=== PATIENT | female | born 1950 | race African-American/Black ===

== ENCOUNTER 2016-10-10 12:49 | Inpatient (IN) | payer MEDICARE, OTHER ==
[2016-10-10] MEDS ORDERED: Sodium Chloride 0.9% 1,000 ML ONE ×2 (13:37→14:21)
[2016-10-10 14:20] LABS: ALT (SGPT) 19 U/L (0-55); AST (SGOT) 22 U/L (5-34); Alkaline Phosphatase 157 U/L (40-150); Anion Gap 16 mmol/L (10-20); BUN (Urea Nitrogen) 41 mg/dL (9.8-20.1); Bilirubin, Total 1.8 mg/dL (0.2-1.2); Calc. Creatinine Clearance 0 mL/min (70-130); Calcium 8.8 mg/dL (7.8-10.44); Carbon Dioxide 14 mmol/L (23-31); Chloride 108 mmol/L (98-107); Estimated GFR-MDRD 21; Globulin 4.2 g/dL (2.4-3.5); Protein, Total 7.5 g/dL (5.8-8.1)
[2016-10-10 14:28] LABS: Band 9 % (5-11); Hematocrit 27.4 % (36.0-47.0); Hypochromia SLIGHT = 6-15 cells (100X) (0-5/hpf); Mean Platelet Volume 9.2 fL (7.4-10.4); Neutrophil 80 % (42-75); Red Blood Cell (RBC) Count 3.19 mill/uL (4.20-5.40); White Blood Cell (WBC) Count 17.5 thou/uL (4.8-10.8)
[2016-10-10 15:00] LABS: Bilirubin Negative (Negative); Blood, Urine Moderate (Negative); Glucose, Urine (Dipstick) Negative (Negative); Ketone, Urine Negative (Negative); Nitrite Negative (Negative); Protein, Urine (Dipstick) 100 mg/dL (Neg-Trace); Urobilinogen 0.2 mg/dL (0.2-1.0)
[2016-10-10 15:01] LABS: Bacteria/HPF 3+ HPF (None Seen); WBC/HPF 21-50 HPF (0-3)
[2016-10-10 15:05] LABS: Lipase Less than 4 U/L (8-78)
[2016-10-10] MEDS ORDERED: cefTRIAXone\\ROCEPHIN 1 GM VIAL ONE (15:16)
[2016-10-10] MEDS ORDERED: Sodium Chloride 0.9% 100 ML ONE (15:16)
--- NOTE | 2016-10-10 15:27 | ERRECORD ---
[facility] EMERGENCY RECORD HPI FLU-LIKE SYNDROME (13:34 JL) CHIEF COMPLAINT: Patient presents for evaluation of body aches, Patient presents for evaluation of fatigue, Patient presents for evaluation of fever, subjective, Patient presents for evaluation of Pt with 4 days of subjective fever and chills and aching all over. Vomitted x1 2 days ago. Left side/flank pain and intermittent CRONIN x3 days. Taking ibuprofen x3 days. Epigastric and RUQ pain since starting the ibuprofen. HISTORIAN: History provided by patient. LOCATION: Symptoms are localized. QUALITY: Pain is dull in nature. TIME COURSE: Patient unable to describe onset of symptoms, There has been no change in the patient's symptoms over time, are intermittent. ASSOCIATED WITH: Associated with abdominal pain, No associated chest pain, No associated cough, No associated diarrhea, Associated with flank pain, on the left, Associated with headache, intermittent, Associated with vomiting, Number of times: 1, currently resolved, No associated neck pain, No associated rash, No associated shortness of breath, No associated urinary tract infection signs or symptoms. EXACERBATED BY: Patient's condition exacerbated by nothing. RELIEVED BY: Patient's condition relieved by nothing. IMMUNIZATION STATUS: Flu vaccine up to date. ROS (13:36 JL) CONSTITUTIONAL: Historian reports chills, reports fever, reports lethargy, reports malaise. EYES: Historian denies eye pain, denies eye redness, denies eye discharge. ENT: Historian denies rhinorrhea, denies sore throat. CARDIOVASCULAR: Historian denies chest pain. RESPIRATORY: Historian denies cough, denies shortness of breath, denies wheezing. GI: Historian reports abdominal pain, denies anorexia, denies appetite changes, denies diarrhea, reports vomiting. GENITOURINARY FEMALE: Historian denies dysuria, denies frequency, denies hematuria. MUSCULOSKELETAL: Historian denies arthralgias, denies myalgias, denies neck pain. left flank pain. SKIN: Historian denies rash, denies skin changes. NEUROLOGIC: Historian denies dizziness, reports headache, denies paralysis, denies paresthesias, denies sensory changes. PAST MEDICAL HISTORY MEDICAL HISTORY: Flu vaccine up to date, Tetanus immunization up to date, Pneumococcal vaccine up to date, Flu vaccine up to date, Tetanus immunization up to date, Pneumococcal vaccine up to &a-1R&a+25V*p+0X*[id number]*c202B*c15G*c2P*p-0X&a-25V&a+1R Name: Donya Sutton : 1950 F66 MedRec: [id number] AcctNum: [id number] Prepared: MonOct 10, 2016 16:29 by Interface Page 1 of 4 pMD [facility] EMERGENCY RECORD date, Flu vaccine up to date, Tetanus immunization up to date, Pneumococcal vaccine up to date, Past medical history includes history of hypertension, Patient is noncompliant, did not take today, Past medical history includes history of diabetes, Type II, on insulin,. (13:25 JPAR) FEMALE SURGICAL HISTORY: ORIF R arm/ elbow, Surgical history of cholecystectomy, open, Notes: over 20 years. (13:25 JPAR) SOCIAL HISTORY: Patient denies alcohol use, Patient denies drug use, Patient has no smoking history,. (13:25 JPAR) FAMILY HISTORY: Family istory is not significant, Maternal history of cardiac disease, PT STATES MOTHER HAD HEART SURGERY, Sibling history of cardiac disease:, coronary artery disease. (13:25 JPAR) NOTES: Nursing records reviewed, Agree with nursing records. (13:38 JLOY) KNOWN ALLERGIES No Known Drug Allergies NONE (Unconfirmed) CURRENT MEDICATIONS Lantus Solostar: INSULIN PEN (ML) : Strength - 100 unit/mL (3 mL) : SUBCUTANEOUS Patient Dose: 6 units Subcutaneous once a day (in the morning). (13:19 JPAR) diclofenac sodium: TABLET, DELAYED RELEASE (ENTERIC COATED) : Strength - 75 mg : ORAL Patient Dose: 1 tab(s) Oral 2 times a day. (13:20 JPAR) pantoprazole: TABLET, DELAYED RELEASE (ENTERIC COATED) : Strength - 40 mg : ORAL Patient Dose: 1 tab(s) Oral once a day. (13:20 JPAR) losartan: TABLET : Strength - 100 mg : ORAL Patient Dose: 1 tab(s) Oral once a day. (13:21 JPAR) hydrochlorothiazide: TABLET : Strength - 25 mg : ORAL Patient Dose: 1 tab(s) Oral once a day. (13:21 JPAR) ferrous sulfate: TABLET : Strength - 325 mg (65 mg iron) : ORAL Patient Dose: 1 tab(s) Oral 2 times a day. (13:22 JPAR) VITAL SIGNS VITAL SIGNS: BP: 134/61, Pulse: 132, Resp: 18, Temp: 99.6 (Oral), Pain: 3, O2 sat: 100, Time: 10/10/2016 13:16. (13:16 JPAR) BP: 113/62, Pulse: 106, Resp: 19, Pain: 1, O2 sat: 97 on Room Air, Time: 10/10/2016 14:15. (14:15 JPAR) BP: 119/57, Pulse: 108, Resp: 17, Pain: 1, O2 sat: 98 on Room Air, Time: 10/10/2016 14:48. (14:48 JPAR) BP: 112/65, Pulse: 104, Resp: 17, Pain: 1, O2 sat: 99 on Room Air, Time: &a-1R&a+25V*p+0X*[id number]*c202B*c15G*c2P*p-0X&a-25V&a+1R Name: Donya Sutton : 1950 F66 MedRec: [id number] AcctNum: [id number] Prepared: MonOct 10, 2016 16:29 by Interface Page 2 of 4 pMD [facility] EMERGENCY RECORD 10/10/2016 15:51. (15:51 JPAR) BP: 108/62, Pulse: 101, Resp: 16, Pain: 1, O2 sat: 99 on Room Air, Time: 10/10/2016 16:02. (16:02 JPAR) PHYSICAL EXAM (13:37 JLOY) CONSTITUTIONAL: Vital signs reviewed, Patient appears non toxic, Patient alert and oriented to person, place and time. EYES: Eye exam included findings of eyelids normal to inspection, Pupils equally round and reactive to light, Conjunctiva normal. ENT: Pharynx exam normal, Uvula exam normal, Tonsil exam normal, Mouth exam included findings of, mucous membranes dry. NECK: Neck exam included findings of normal range of motion, Trachea midline, no meningeal signs, no cervical adenopathy. RESPIRATORY CHEST: Respiratory exam included findings of no respiratory distress, Breath sounds clear, No wheezing, No rales, No rhonchi, Chest exam included findings of chest movement symmetrical. CARDIOVASCULAR: Cardiovascular exam included findings of, rate tachycardic, rhythm regular, Heart sounds normal. ABDOMEN FEMALE: Abdominal exam included findings of abdomen tender, to the epigastric region, to the right upper quadrant, mild intensity, Bowel sounds normal, Liver normal, Spleen normal, no distension, no peritoneal signs, no rigidity, no guarding, no rebound. BACK: Back exam included findings of normal inspection, range of motion normal, Costovertebral angle tenderness, on the left, mild. UPPER EXTREMITY: Upper extremity exam included findings of inspection normal, Radial pulse normal, no cyanosis, no clubbing, no edema. LOWER EXTREMITY: Lower extremity exam included findings of inspection normal, no edema, no calf tenderness. NEURO: [place] coma scale 15, Neuro exam findings include patient oriented to person, place and time, Speech normal. SKIN: Skin exam included findings of skin warm, dry, and normal in color, no rash. PSYCHIATRIC: Normal affect. MEDICATION ADMINISTRATION SUMMARY Drug Name: cefTRIAXone injection, Dose Ordered: 1 g, Route: IV Piggy Back, Status: Given, Time: 15:18 10/10/2016, Drug Name: *sodium chloride 0.9 % intravenous, Dose Ordered: 150 mL/hr, Route: IV Fluid Infusion, Status: Given, Time: 14:22 10/10/2016, Drug Name: *sodium chloride 0.9 % intravenous, Dose Ordered: 1 L, Route: IV Fluid Infusion, Status: Given, Time: 13:49 10/10/2016, *Additional information available in notes, Detailed record available in Medication Service section. 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 (15:15 [facility]) Dr. Suh called and reported that [facility] was full and she accepted the admission to [place]. (15:36 JL) PROBLEM LIST No recorded problems DIAGNOSIS (15:16 DANIELLE) FINAL: PRIMARY: UTI, ADDITIONAL: ACUTE RENAL FAILURE TUBULR NECROSIS. PRESCRIPTION No recorded prescriptions DISPOSITION PATIENT: Disposition Type: Transfer, Disposition: Transfer to [facility]. (15:16 DANIELLE) Disposition Type: Admit, Disposition: [facility]. (15:36 DANIELLE) Patient left the department. (16:24 [place]) Rosado: DANIELLE=MD Ferny, Morgan HAYDEN=LINDY Cavazos, Maxx &a-1R&a+25V*p+0X*[id number]*c202B*c15G*c2P*p-0X&a-25V&a+1R Name: Donya Sutton : 1950 F66 MedRec: [id number] AcctNum: [id number] Prepared: MonOct 10, 2016 16:29 by Interface Page 4 of 4 pMD MTDD
--- NOTE | 2016-10-10 15:30 | PICIS ---
[facility] EMERGENCY RECORD TRIAGE (13:18 JPAR) TRIAGE NOTES: Chills, headache, weakness, body aches and pains. (13:18 JPAR) PATIENT: NAME: Donya Sutton, AGE: 66, GENDER: female, : Mon1950, TIME OF GREET: MonOct 10, 2016 12:49, PREFERRED LANGUAGE: Tongan, ETHNICITY: Not or , ECODE BILLING MAP: [facility], SSN: [id number], Zip Code: [address], KG WEIGHT: 57.61, PHONE: , , , PERSON ID: [id number], PCP: MD Suh Katherine. (13:18 JPAR) COMPLAINT: FEVER,BODY CHILLLS. (13:18 JPAR) ADMISSION: URGENCY: 3 Urgent, ADMISSION SOURCE: Home, TRANSPORT: CAR, BED: TRIAGE. (13:18 JPAR) ASSESSMENT: Assessment: chills, weakness, headache general aches and pains. 3-4 days, Symptoms began 3-4 days, Symptoms began 3 days ago. (13:25 JPAR) SIRS SCORING: Heart Rate 110-139 (2), Temp range 96.8-101.1 (0), respiratory rate 12-24 (0), Mental Status altered: no (0), Infection or Suspected Infection: No. (13:25 JPAR) TRIAGE SCREENING: Patient denies suicidal ideation, Patient denies presence of domestic violence. (13:25 JPAR) PROVIDERS: TRIAGE NURSE: Maxx Cavazos RN. (13:18 JPAR) VITAL SIGNS: BP 134/61, Pulse 132, Resp 18, Temp 99.6, (Oral), Pain 3, O2 Sat 100, Time 10/10/2016 13:16. (13:16 JPAR) PREVIOUS VISIT ALLERGIES: No Known Drug Allergies. (13:18 JPAR) No Known Drug Allergies. (13:25 JPAR) KNOWN ALLERGIES No Known Drug Allergies NONE (Unconfirmed) CURRENT MEDICATIONS Lantus Solostar: INSULIN PEN (ML) : Strength - 100 unit/mL (3 mL) : SUBCUTANEOUS Patient Dose: 6 units Subcutaneous once a day (in the morning). (13:19 JPAR) diclofenac sodium: TABLET, DELAYED RELEASE (ENTERIC COATED) : Strength - 75 mg : ORAL Patient Dose: 1 tab(s) Oral 2 times a day. (13:20 JPAR) pantoprazole: TABLET, DELAYED RELEASE (ENTERIC COATED) : Strength - 40 mg : ORAL Patient Dose: 1 tab(s) Oral once a day. (13:20 JPAR) losartan: TABLET : Strength - 100 mg : ORAL Patient Dose: 1 tab(s) Oral once a day. (13:21 JPAR) hydrochlorothiazide: TABLET : Strength - 25 mg : ORAL Patient Dose: 1 tab(s) Oral once a day. (13:21 JPAR) ferrous sulfate: TABLET : Strength - 325 mg (65 mg iron) : ORAL &a-1R&a+25V*p+0X*w9211D*c202B*c15G*c2P*p-0X&a-25V&a+1R Name: Donya Sutton : 1950 F66 MedRec: [id number] AcctNum: [id number] Prepared: MonOct 10, 2016 16:33 by Interface Page 1 of 14 pMD [facility] EMERGENCY RECORD Patient Dose: 1 tab(s) Oral 2 times a day. (13:22 JPAR) VITAL SIGNS VITAL SIGNS: BP: 134/61, Pulse: 132, Resp: 18, Temp: 99.6 (Oral), Pain: 3, O2 sat: 100, Time: 10/10/2016 13:16. (13:16 JPAR) BP: 113/62, Pulse: 106, Resp: 19, Pain: 1, O2 sat: 97 on Room Air, Time: 10/10/2016 14:15. (14:15 JPAR) BP: 119/57, Pulse: 108, Resp: 17, Pain: 1, O2 sat: 98 on Room Air, Time: 10/10/2016 14:48. (14:48 JPAR) BP: 112/65, Pulse: 104, Resp: 17, Pain: 1, O2 sat: 99 on Room Air, Time: 10/10/2016 15:51. (15:51 JPAR) BP: 108/62, Pulse: 101, Resp: 16, Pain: 1, O2 sat: 99 on Room Air, Time: 10/10/2016 16:02. (16:02 JPAR) NURSING ASSESSMENT: HEADACHE (13:18 JPAR) CONSTITUTIONAL: Patient arrives ambulatory, Gait steady, History obtained from patient, Patient appears comfortable, Patient cooperative, Patient alert, Oriented to person, place and time, Skin warm, Skin dry, Skin normal in color, Mucous membranes pink, Mucous membranes moist, Patient complains of headache, dehydration, chills general body aches and pains, pt states 4-5 days onset, got flu shot 2 weeks ago. PAIN: aching pain, to the frontal region, to the right orbit, to the right parietal region, to the posterior region, Onset of pain 4-5 days, on a scale 0-10 patient rates pain as 3. HEADACHE: Headache assessment findings include headache not worst of life, no history of migraines, no associated aura, no associated difficulty concentrating, not associated with diplopia, Associated with nausea, Associated with vomiting, no associated photophobia, no associated phonophobia, no associated, Precipitating factors do not include alcohol use, Precipitating factors do not include alcohol withdrawal, Precipitating factors do not include altered sleep pattern, Precipitating factors do not include depression, Precipitating factors include fatigue, Precipitating factors include fever, Precipitating factors do not include flickering lights, Precipitating factors do not include food, Precipitating factors do not include menses, Precipitating factors do not include stress, Precipitating factors do not include watching television, Precipitating factors do not include. NEURO: Neuro assessment findings include onset of symptoms: 4-5 days, Pupils equally round and reactive to light, Left pupil 3 mm in size, Right pupil 3 mm in size, Able to close eyes, Face symmetrical, Speech normal, no ptosis, no nystagmus, no visual changes, no facial droop, no facial numbness, no swelling, no paresthesias, GCS:, Eye opening: (4) - Spontaneous, Verbal: (5) - Oriented/conversive, Motor: (6) - Obeys commands/Spontaneous, GCS Total: 15, Upper extremity strength strong, no numbness to upper extremities, Lower extremity strength strong, Foot press equal, &a-1R&a+25V*p+0X*i5203J*c202B*c15G*c2P*p-0X&a-25V&a+1R Name: Donya Sutton : 1950 F66 MedRec: [id number] AcctNum: [id number] Prepared: MonOct 10, 2016 16:33 by Interface Page 2 of 14 pMD [facility] EMERGENCY RECORD no numbness to lower extremities. SAFETY: Side rails up, Cart/Stretcher in lowest position, Family at bedside, Call light within reach, Hospital ID band on. NURSING PROCEDURE: ADMISSION (15:45 JPAR) ADMISSION: Patient admitted to a medical-surgical unit, room number 142, Report called to, Ladonna, Provided opportunity to answer questions, Admission orders received and completed, Bed assigned at 1545, Report called at 1545, Patient Admited at. 1545, Transported via cart/stretcher, Accompanied by registered nurse, Transported with IV Fluid(s) infusing, NS @ 150ml/hr, Summary of Care printed. BELONGINGS: Belongings and valuables with patient at time of admission include:, Belongings remain with patient, Valuables remain with patient. SAFETY: Side rails up, Cart/Stretcher in lowest position, Call light within reach, Hospital ID band on. NURSING PROCEDURE: STRUCTURAL ENGINEER (14:00 JPAR) PATIENT IDENTIFIER: Patient actively involved in identification process, Patient's identity verified by patient stating name, Patient's identity verified by patient stating date, Patient's identity verified by hospital ID bracelet, Patient's identity verified by family member. STRUCTURAL ENGINEER: Cardiac monitoring indicated for Dehydration/ Tachycardia, Patient placed on environmental monitoring technician, Heart rate: 111, showing sinus tachycardia, without ectopy, with no ST segment changes, Patient placed on non-invasive blood pressure monitor, with disposable blood pressure cuff applied, Patient placed on continuous pulse oximetry, Adult/pediatric oxisensor applied, Oxygen saturation 98%. FOLLOW-UP: After procedure, patient tolerating monitoring. SAFETY: Side rails up, Cart/Stretcher in lowest position, Call light within reach, Hospital ID band on. NURSING PROCEDURE: ENT (13:50 JPAR) PATIENT IDENTIFIER: Patient actively involved in identification process, Patient's identity verified by patient stating name, Patient's identity verified by patient stating date, Patient's identity verified by hospital ID bracelet, Patient's identity verified by family member. ENT: ENT care indicated for specimen collection, Nasal swab collected, labeled in the presence of the patient and sent to lab for testing of, influenza A, influenza B. SAFETY: Side rails up, Cart/Stretcher in lowest position, Family at bedside, Call light within reach, Hospital ID band on. NURSING PROCEDURE: IV PATIENT IDENITIFIER: Patient actively involved in identification process, Patient's identity verified by patient stating name, &a-1R&a+25V*p+0X*e9167E*c202B*c15G*c2P*p-0X&a-25V&a+1R Name: Donya Sutton : 1950 F66 MedRec: [id number] AcctNum: [id number] Prepared: MonOct 10, 2016 16:33 by Interface Page 3 of 14 [facility] EMERGENCY RECORD Patient's identity verified by patient stating date, Patient's identity verified by hospital ID bracelet, Patient's identity verified by family member. (13:44 JPAR) IV SITE 1: IV therapy indicated for hydration, IV therapy indicated for medication administration, IV therapy indicated for Dehydration/ Tachycardia, IV established, to the right forearm, using a 20 gauge catheter, in one attempt, IV site prepped with clorohexaphine, Saline lock established, Flushed with normal saline (mls): 10, Labs drawn at time of placement, labeled in the presence of the patient and sent to lab, Blood cultures drawn at time of placement, labeled in the presence of the patient and sent to lab, Notes: 1st set cultures complete. (13:44 JPAR) FOLLOW-UP SITE 1: After procedure, 2x3 ensure dressing applied, After procedure, no drainage at IV site, After procedure, no swelling at IV site, After procedure, no redness at IV site, Notes: IV Patent with fluids running 150ml/hr. (16:01 JPAR) SAFETY: Side rails up, Cart/Stretcher in lowest position, Family at bedside, Call light within reach, Hospital ID band on. (13:44 JPAR) NURSING PROCEDURE: LAB DRAW (14:06 JPAR) PATIENT IDENTIFIER: Patient actively involved in identification process, Patient's identity verified by patient stating name, Patient's identity verified by patient stating date, Patient's identity verified by hospital ID bracelet. LAB DRAW: Lab draw indicated for inability to obtain labs from IV site, Lab draw indicated for obtaining specimens for evaluation, Subsequent lab draw performed, by venipuncture, from left forearm, in two attempts, Blood cultures labeled in the presence of the patient and sent to lab, Notes: 2nd set of BC taken. FOLLOW-UP: After procedure, dressing applied to site, After procedure, no swelling at site, After procedure, no active bleeding from site. SAFETY: Side rails up, Cart/Stretcher in lowest position, Call light within reach, Hospital ID band on. NURSING PROCEDURE: NURSE NOTES (15:45 JPAR) NURSES NOTES: Patient in no apparent distress, Notes: Pt family contacted and was told no beds available at this time in [place] so pt going to be admitted here in [place] to care of Dr. Suh. NURSING PROCEDURE: URINE COLLECTION (14:38 JPAR) PATIENT IDENTIFIER: Patient actively involved in identification process, Patient's identity verified by patient stating name, Patient's identity verified by patient stating date, Patient's identity verified by hospital ID bracelet, Patient's identity verified by family member. URINE COLLECTION FEMALE: Urine collection indicated to monitor output, Urine collected by void, output amount (mL) 30, urine clear &a-1R&a+25V*p+0X*c5351H*c202B*c15G*c2P*p-0X&a-25V&a+1R Name: Donya Sutton : 1950 F66 MedRec: [id number] AcctNum: [id number] Prepared: MonOct 10, 2016 16:33 by Interface Page 4 of 14 pMD [facility] EMERGENCY RECORD in color, and cloudy, Specimen labeled in the presence of the patient and sent to lab, Specimen obtained for culture labeled in the presence of the patient and sent to lab. SAFETY: Side rails up, Cart/Stretcher in lowest position, Family at bedside, Call light within reach, Hospital ID band on. ORDER DETAILS Order Name: STRUCTURAL ENGINEER ED, Status: Done, Time: 13:59 10/10/2016, User: CATRACHO, - Ordered for: MD Isaacs Joshua, - Entered by: MD Isaacs Joshua - Jose Oct 10, 2016 13:33, - Quantity: 1, Order Name: CBC with Differential, Status: Active, Time: 13:33 10/10/2016, User: DANIELLE, - Ordered for: MD Isaacs Joshua, - Entered by: MD Isaacs Joshua - Jose Oct 10, 2016 13:33, - Quantity: 1, Order Name: Comprehensive Metabolic Panel, Status: Active, Time: 13:33 10/10/2016, User: DANIELLE, - Ordered for: MD Isaacs Joshua, - Entered by: MD Isaacs Joshua - Jose Oct 10, 2016 13:33, - Quantity: 1, Order Name: Culture, Blood, Status: Active, Time: 13:33 10/10/2016, User: DANIELLE, - Ordered for: MD Isaacs Joshua, - Entered by: MD Isaacs Joshua - Jose Oct 10, 2016 13:33, - Quantity: 1, Order Name: Culture, Urine, Status: Active, Time: 15:07 10/10/2016, User: DANIELLE, - Ordered for: MD Isaacs Joshua, - Entered by: MD Isaacs Joshua - [facility] Oct 10, 2016 15:07, - Quantity: 1, Order Name: Influenza A&B Ag Screen, Status: Active, Time: 13:33 10/10/2016, User: DANIELLE, - Ordered for: MD Isaacs Joshua, - Entered by: MD Isaacs Joshua - [facility] Oct 10, 2016 13:33, - Quantity: 1, Order Name: Lipase, Status: Active, Time: 13:33 10/10/2016, User: DANIELLE, - Ordered for: MD Isaacs Joshua, - Entered by: MD Isaacs Joshua - Jose Oct 10, 2016 13:33, - Quantity: 1, Order Name: SALINE LOCK, Status: Done, Time: 14:00 10/10/2016, User: CATRACHO, - Ordered for: MD Isaacs Joshua, - Entered by: MD Isaacs Joshua - Jose Oct 10, 2016 13:33, - Quantity: 1, Order Name: Urinalysis with Microscopic, Status: Active, Time: 13:33 10/10/2016, User: DANIELLE, - Ordered for: MD Isaacs Joshua, &a-1R&a+25V*p+0X*k8015N*c202B*c15G*c2P*p-0X&a-25V&a+1R Name: Donya Sutton : 1950 F66 MedRec: [id number] AcctNum: [id number] Prepared: MonOct 10, 2016 16:33 by Interface Page 5 of 14 pMD [facility] EMERGENCY RECORD - Entered by: MD Isaacs Joshua - MonOct 10, 2016 13:33, - Quantity: 1, Order Name: XR Chest 1 View Portable, Status: Active, Time: 13:33 10/10/2016, User: DANIELLE, - Ordered for: MD Isaacs Joshua, - Entered by: MD Isaacs Joshua - MonOct 10, 2016 13:33, - Quantity: 1. MEDICATION ADMINISTRATION SUMMARY Drug Name: cefTRIAXone injection, Dose Ordered: 1 g, Route: IV Piggy Back, Status: Given, Time: 15:18 10/10/2016, Drug Name: *sodium chloride 0.9 % intravenous, Dose Ordered: 150 mL/hr, Route: IV Fluid Infusion, Status: Given, Time: 14:22 10/10/2016, Drug Name: *sodium chloride 0.9 % intravenous, Dose Ordered: 1 L, Route: IV Fluid Infusion, Status: Given, Time: 13:49 10/10/2016, *Additional information available in notes, Detailed record available in Medication Service section. MEDICATION SERVICE cefTRIAXone injection: Order: cefTRIAXone injection (ceftriaxone sodium) - Dose: 1 g : IV Piggy Back Ordered by: Morgan Isaacs MD Entered by: Morgan Isaacs MD MonOct 10, 2016 15:08 , Acknowledged by: Maxx Cavazos RN MonOct 10, 2016 15:15 Documented as given by: Maxx Cavazos RN MonOct 10, 2016 15:18 Patient, Medication, Dose, Route and Time verified prior to administration. IV SITE #1 IVPB or drip, initial infusion, IVPB mixed in: 100ml, Fluid: 0.9NS, via primary tubing, on an IV pump, Awake and alert- acceptable, Connections checked prior to administration, Line traced prior to administration, Catheter placement confirmed via flush prior to administration, IV site without signs or symptoms of infiltration during medication administration, No swelling during administration, No drainage during administration, IV flushed after administration, Correct patient, time, route, dose and medication confirmed prior to administration, Patient advised of actions and side-effects prior to administration, Allergies confirmed and medications reviewed prior to administration, Patient in position of comfort, Side rails up, Cart in lowest position, Call light in reach. : Follow Up : Response assessment performed, No signs or symptoms of allergic reaction noted, Site inspection shows, No swelling at administration site, No drainage at administration site, No bleeding at site, No bruising noted at site, _IV SITE #1:_, Medication infusion discontinued, on MonOct 10, 2016 15:48, 30 minutes, ., IV Line flushed after administration, Advised not to ambulate without assistance, Patient in position of comfort, Side rails up, Cart in lowest position, Family at bedside, Call light in reach. (15:48 JPAR) sodium chloride 0.9 % intravenous: Order: sodium chloride 0.9 % &a-1R&a+25V*p+0X*i8230E*c202B*c15G*c2P*p-0X&a-25V&a+1R Name: Donya Sutton : 1950 F66 MedRec: [id number] AcctNum: [id number] Prepared: MonOct 10, 2016 16:33 by Interface Page 6 of 14 pMD [facility] EMERGENCY RECORD intravenous (0.9 % sodium chloride) - Dose: 1 L : IV Fluid Infusion Notes: (Bolus) Ordered by: Morgan Isaacs MD Entered by: Morgan Isaacs MD MonOct 10, 2016 13:33 , Acknowledged by: Maxx Cavazos RN MonOct 10, 2016 13:36 Documented as given by: Maxx Cavazos RN MonOct 10, 2016 13:49 Patient, Medication, Dose, Route and Time verified prior to administration. IV SITE #1 IV fluids established for hydration, IV SITE #1 into right forearm, IV SITE #1 1st bag hung, amount 1 Liter hung, IV SITE #1 bolus of 1000 ml established, via primary tubing, Awake and alert- acceptable, Connections checked prior to administration, Line traced prior to administration, Catheter placement confirmed via flush prior to administration, IV site without signs or symptoms of infiltration during medication administration, No swelling during administration, No drainage during administration, IV flushed after administration, Correct patient, time, route, dose and medication confirmed prior to administration, Patient advised of actions and side-effects prior to administration, Allergies confirmed and medications reviewed prior to administration, Patient in position of comfort, Side rails up, Cart in lowest position, Family at bedside, Call light in reach. sodium chloride 0.9 % intravenous: Response assessment performed, Decreased symptoms, Decreased heart rate, Site inspection shows, No swelling at administration site, No drainage at administration site, No bleeding at site, No bruising noted at site, _IV SITE #1:_, IV fluid infusion discontinued, on MonOct 10, 2016 14:15, 30 minutes, ., Total amount infused: 1000, IV Line flushed after administration, Advised not to ambulate without assistance, Patient in position of comfort, Side rails up, Cart in lowest position, Call light in reach, BP: 113, / 62, Pulse: 106, Resp: 19, Pain: 1, O2 sat: 97, on Room Air. (14:15 JPAR) sodium chloride 0.9 % intravenous: Order: sodium chloride 0.9 % intravenous (0.9 % sodium chloride) - Dose: 150 mL/hr : IV Fluid Infusion Notes: (Bolus) Ordered by: Morgan Isaacs MD Entered by: Morgan Isaacs MD MonOct 10, 2016 14:21 Documented as given by: Maxx Cavazos RN MonOct 10, 2016 14:22 Patient, Medication, Dose, Route and Time verified prior to administration. IV SITE #1 IV fluids established for hydration, IV SITE #1 into right forearm, IV SITE #1 2nd bag hung, amount 1 Liter hung, IV SITE #1 Rate of infusion (non-bolus) Infusing at 150 ml/hr, via primary tubing, IV SITE #1 on IV pump, Awake and alert- acceptable, Connections checked prior to administration, Line traced prior to administration, Catheter placement confirmed via flush prior to administration, IV site without signs or symptoms of infiltration during medication administration, No swelling during administration, No drainage during administration, IV flushed after administration, &a-1R&a+25V*p+0X*n9067P*c202B*c15G*c2P*p-0X&a-25V&a+1R Name: Donya Sutton : 1950 F66 MedRec: [id number] AcctNum: [id number] Prepared: MonOct 10, 2016 16:33 by Interface Page 7 of 14 pMD [facility] EMERGENCY RECORD Correct patient, time, route, dose and medication confirmed prior to administration, Patient advised of actions and side-effects prior to administration, Allergies confirmed and medications reviewed prior to administration, Patient in position of comfort, Side rails up, Cart in lowest position, Family at bedside, Call light in reach. sodium chloride 0.9 % intravenous: Response assessment performed, No signs or symptoms of allergic reaction noted, Decreased heart rate, Site inspection shows, No swelling at administration site, No drainage at administration site, No bleeding at site, No bruising noted at site, _IV SITE #1:_, IV fluid infusion continued upon transfer from emergency department, on MonOct 10, 2016 16:02, Total fluid hydration time IV site 1 1 hour, 40 minutes, ., Total amount infused: 260ml, IV Line flushed after administration, Advised not to ambulate without assistance, Patient in position of comfort, Side rails up, Cart in lowest position, Call light in reach, BP: 108, / 62, Pulse: 101, Resp: 16, Pain: 1, O2 sat: 99, on Room Air. (16:02 VIDA) HPI FLU-LIKE SYNDROME (13:34 [facility]) CHIEF COMPLAINT: Patient presents for evaluation of body aches, Patient presents for evaluation of fatigue, Patient presents for evaluation of fever, subjective, Patient presents for evaluation of Pt with 4 days of subjective fever and chills and aching all over. Vomitted x1 2 days ago. Left side/flank pain and intermittent CRONIN x3 days. Taking ibuprofen x3 days. Epigastric and RUQ pain since starting the ibuprofen. HISTORIAN: History provided by patient. LOCATION: Symptoms are localized. QUALITY: Pain is dull in nature. TIME COURSE: Patient unable to describe onset of symptoms, There has been no change in the patient's symptoms over time, are intermittent. ASSOCIATED WITH: Associated with abdominal pain, No associated chest pain, No associated cough, No associated diarrhea, Associated with flank pain, on the left, Associated with headache, intermittent, Associated with vomiting, Number of times: 1, currently resolved, No associated neck pain, No associated rash, No associated shortness of breath, No associated urinary tract infection signs or symptoms. EXACERBATED BY: Patient's condition exacerbated by nothing. RELIEVED BY: Patient's condition relieved by nothing. IMMUNIZATION STATUS: Flu vaccine up to date. ROS (13:36 [facility]) CONSTITUTIONAL: Historian reports chills, reports fever, reports lethargy, reports malaise. EYES: Historian denies eye pain, denies eye redness, denies eye discharge. ENT: Historian denies rhinorrhea, denies sore throat. &a-1R&a+25V*p+0X*j8693A*c202B*c15G*c2P*p-0X&a-25V&a+1R Name: Donya Sutton : 1950 F66 MedRec: [id number] AcctNum: [id number] Prepared: MonOct 10, 2016 16:33 by Interface Page 8 of 14 pMD [facility] EMERGENCY RECORD CARDIOVASCULAR: Historian denies chest pain. RESPIRATORY: Historian denies cough, denies shortness of breath, denies wheezing. GI: Historian reports abdominal pain, denies anorexia, denies appetite changes, denies diarrhea, reports vomiting. GENITOURINARY FEMALE: Historian denies dysuria, denies frequency, denies hematuria. MUSCULOSKELETAL: Historian denies arthralgias, denies myalgias, denies neck pain. left flank pain. SKIN: Historian denies rash, denies skin changes. NEUROLOGIC: Historian denies dizziness, reports headache, denies paralysis, denies paresthesias, denies sensory changes. PAST MEDICAL HISTORY MEDICAL HISTORY: Flu vaccine up to date, Tetanus immunization up to date, Pneumococcal vaccine up to date, Flu vaccine up to date, Tetanus immunization up to date, Pneumococcal vaccine up to date, Flu vaccine up to date, Tetanus immunization up to date, Pneumococcal vaccine up to date, Past medical history includes history of hypertension, Patient is noncompliant, did not take today, Past medical history includes history of diabetes, Type II, on insulin,. (13:25 JPAR) FEMALE SURGICAL HISTORY: ORIF R arm/ elbow, Surgical history of cholecystectomy, open, Notes: over 20 years. (13:25 JPAR) SOCIAL HISTORY: Patient denies alcohol use, Patient denies drug use, Patient has no smoking history,. (13:25 JPAR) FAMILY HISTORY: Family istory is not significant, Maternal history of cardiac disease, PT STATES MOTHER HAD HEART SURGERY, Sibling history of cardiac disease:, coronary artery disease. (13:25 JPAR) NOTES: Nursing records reviewed, Agree with nursing records. (13:38 JLOY) PHYSICAL EXAM (13:37 JLOY) CONSTITUTIONAL: Vital signs reviewed, Patient appears non toxic, Patient alert and oriented to person, place and time. EYES: Eye exam included findings of eyelids normal to inspection, Pupils equally round and reactive to light, Conjunctiva normal. ENT: Pharynx exam normal, Uvula exam normal, Tonsil exam normal, Mouth exam included findings of, mucous membranes dry. NECK: Neck exam included findings of normal range of motion, Trachea midline, no meningeal signs, no cervical adenopathy. RESPIRATORY CHEST: Respiratory exam included findings of no respiratory distress, Breath sounds clear, No wheezing, No rales, No rhonchi, Chest exam included findings of chest movement symmetrical. CARDIOVASCULAR: Cardiovascular exam included findings of, rate tachycardic, rhythm regular, Heart sounds normal. &a-1R&a+25V*p+0X*[id number]*c202B*c15G*c2P*p-0X&a-25V&a+1R Name: Donya Sutton : 1950 F66 MedRec: [id number] AcctNum: [id number] Prepared: MonOct 10, 2016 16:33 by Interface Page 9 of 14 pMD [facility] EMERGENCY RECORD ABDOMEN FEMALE: Abdominal exam included findings of abdomen tender, to the epigastric region, to the right upper quadrant, mild intensity, Bowel sounds normal, Liver normal, Spleen normal, no distension, no peritoneal signs, no rigidity, no guarding, no rebound. BACK: Back exam included findings of normal inspection, range of motion normal, Costovertebral angle tenderness, on the left, mild. UPPER EXTREMITY: Upper extremity exam included findings of inspection normal, Radial pulse normal, no cyanosis, no clubbing, no edema. LOWER EXTREMITY: Lower extremity exam included findings of inspection normal, no edema, no calf tenderness. NEURO: [place] coma scale 15, Neuro exam findings include patient oriented to person, place and time, Speech normal. SKIN: Skin exam included findings of skin warm, dry, and normal in color, no rash. PSYCHIATRIC: Normal affect. EVENTS TRANSFER: Triage to Emergency Triage. (MonOct 10, 2016 13:18 JPAR) Emergency Triage to Emergency Room -04. (13:20 LHAL) Removed from Emergency Emergency Room -04. (16:24 JPAR) DOCTOR NOTES TEXT: Dr. Suh accepted the transfer to [facility] as a direct admit. (15:15 JLOY) Dr. Suh called and reported that [facility] was full and she accepted the admission to [place]. (15:36 JLOY) PROBLEM LIST No recorded problems DIAGNOSIS (15:16 JLOY) FINAL: PRIMARY: UTI, ADDITIONAL: ACUTE RENAL FAILURE TUBULR NECROSIS. DISPOSITION PATIENT: Disposition Type: Transfer, Disposition: Transfer to [facility]. (15:16 JLOY) Disposition Type: Admit, Disposition: [facility]. (15:36 JLOY) Patient left the department. (16:24 JPAR) PRESCRIPTION No recorded prescriptions IMAGING ADMISSION ORDERS: Image captured from scanner. (15:29 JPAR) &a-1R&a+25V*p+0X*[id number]*c202B*c15G*c2P*p-0X&a-25V&a+1R Name: Donya Sutton : 1950 F66 MedRec: [id number] AcctNum: [id number] Prepared: MonOct 10, 2016 16:33 by Interface Page 10 of 14 pMD [facility] EMERGENCY RECORD *SUPPLY CHARGE SHEET: Image captured from scanner. (15:52 JPAR) ADMIN DIGITAL SIGNATURE: MD Isaacs Joshua. (15:18 JLOY) MD Isaacs Joshua. (15:21 JLOY) MD Isaacs Joshua. (15:36 JLOY) RESULTS LABORATORY: CBC with Differential Collection DT: MonOct 10, 2016 14:01, *White Blood Cell (WBC) Count 17.5 - H thou/uL, Range (4.8-10.8), *Red Blood Cell (RBC) Count 3.19 - L mill/uL, Range (4.20-5.40), *Hemoglobin 9.0 - L g/dL, Range (12.0-16.0), *Hematocrit 27.4 - L %, Range (36.0-47.0), Mean Corpuscular Volume 85.8 fl, Range (81.0-99.0), Mean Corpuscular Hemoglobin 28.3 pg, Range (27.0-31.0), Mean Corpuscular HGB CONC 33.0 g/dL, Range (32.0-36.0), *RBC Distribution Width 11.4 - L %, Range (11.5-14.5), Platelet Count 130 thou/uL, Range (130-400), Mean Platelet Volume 9.2 fL, Range (7.4-10.4), *Neutrophil 80 - H %, Range (42-75), Band 9 %, Range (5-11), *Lymphocytes 3 - L %, Range (21-51), Monocytes 5 %, Range (0-10), Eosinophils 2 %, Range (0-10), Basophils 1 %, Range (0-2), Hypochromia SLIGHT = 6-15 cells (100X), Range (0-5/hpf), Large Platelets SLIGHT , PLT Morphology Comment Appears Adequate . (14:33 JPAR) MICROBIOLOGY: Influenza A&B Ag Screen: [id number] Collection DT: MonOct 10, 2016 14:01, See comment below , @ ER ROOM#: [id number] Source: Nasal swab Spec Desc: , Influenza A Antigen: NEGATIVE for the , presence of , INFLUENZA A Antigen , Influenza B Antigen: NEGATIVE for the , presence of , INFLUENZA B Antigen , The rapid Flu A&B test can distinguish between influenza A , Influenza A&B Ag Screen See comment below , and B viruses, but it does not differentiate influenza , Influenza A&B Ag Screen See comment below , subtypes. , Influenza A&B Ag Screen See comment below , Influenza A&B Ag Screen See comment below , Influenza A&B Ag Screen See comment below , Influenza A&B Ag Screen See comment below , characteristics of this &a-1R&a+25V*p+0X*[id number]*c202B*c15G*c2P*p-0X&a-25V&a+1R Name: Donya Sutton : 1950 F66 MedRec: [id number] AcctNum: [id number] Prepared: MonOct 10, 2016 16:33 by Interface Page 11 of 14 pMD [facility] EMERGENCY RECORD device with human specimens infected , Influenza A&B Ag Screen See comment below , with the 2008 H1N1 influenza virus have not been , Influenza A&B Ag Screen See comment below , established. For example: this test cannot distinguish , Influenza A&B Ag Screen See comment below , influenza infections caused by novel H1N1 influenza A , Influenza A&B Ag Screen See comment below , viruses versus seasonal influenza A viruses. , Influenza A&B Ag Screen See comment below , , Influenza A&B Ag Screen See comment below , A negative result does not exclude influenza virus , Influenza A&B Ag Screen See comment below , infection; therefore, if more conclusive testing is desired, , Influenza A&B Ag Screen See comment below , follow up confirmatory testing is warranted., Influenza A&B Ag Screen See comment below . (14:33 JPAR) LABORATORY: Comprehensive Metabolic Panel Collection DT: MonOct 10, 2016 14:01, *Sodium 135 - L mmol/L, Range (136-145), *Potassium 3.2 - L mmol/L, Range (3.5-5.1), *Chloride 108 - H mmol/L, Range (98-107), *Carbon Dioxide 14 - L mmol/L, Range (23-31), Anion Gap 16 mmol/L, Range (10-20), *BUN (Urea Nitrogen) 41 - H mg/dL, Range (9.8-20.1), *Creatinine 2.72 - H mg/dL, Range (0.6-1.1), Estimated GFR-MDRD 21 , Reference Range for Estimated GFR: Greater than 90, mL/min/1.73 m2 NOTE: The MDRD equation has not been validated for use, with the elderly (over 70 years of age), women, patients with, serious comorbid condition or persons with extremes of body size, muscle, mass, or nutritional status. , *Glucose 195 - H mg/dL, Range (80-115), Calcium 8.8 mg/dL, Range (7.8-10.44), *Bilirubin, Total 1.8 - H mg/dL, Range (0.2-1.2), Protein, Total 7.5 g/dL, Range (5.8-8.1), NOTE: Plasma values are generally 0.3 to 0.5 g/dL higher than serum values, due to the presence of fibrinogen. , *Albumin 3.3 - L g/dL, Range (3.4-4.8), *Globulin 4.2 - H g/dL, Range (2.4-3.5), *Alb/Glob Ratio 0.8 - L g/dL, Range (1.2-2.2), *Alkaline Phosphatase 157 - H U/L, Range (40-150), AST (SGOT) 22 U/L, Range (5-34), ALT (SGPT) 19 U/L, Range (0-55). (14:33 VIDA) Lipase Collection DT: MonOct 10, 2016 14:01, *Lipase Less than 4 - L U/L, Range (8-78). (15:21 [facility]) Comprehensive Metabolic Panel Collection DT: MonOct 10, 2016 14:01, &a-1R&a+25V*p+0X*[id number]*c202B*c15G*c2P*p-0X&a-25V&a+1R Name: Donya Sutton : 1950 F66 MedRec: [id number] AcctNum: [id number] Prepared: MonOct 10, 2016 16:33 by Interface Page 12 of 14 pMD [facility] EMERGENCY RECORD *Sodium 135 - L mmol/L, Range (136-145), *Potassium 3.2 - L mmol/L, Range (3.5-5.1), *Chloride 108 - H mmol/L, Range (98-107), *Carbon Dioxide 14 - L mmol/L, Range (23-31), Anion Gap 16 mmol/L, Range (10-20), *BUN (Urea Nitrogen) 41 - H mg/dL, Range (9.8-20.1), *Creatinine 2.72 - H mg/dL, Range (0.6-1.1), Estimated GFR-MDRD 21 , Reference Range for Estimated GFR: Greater than 90, mL/min/1.73 m2 NOTE: The MDRD equation has not been validated for use, with the elderly (over 70 years of age), women, patients with, serious comorbid condition or persons with extremes of body size, muscle, mass, or nutritional status. , *Glucose 195 - H mg/dL, Range (80-115), Calcium 8.8 mg/dL, Range (7.8-10.44), *Bilirubin, Total 1.8 - H mg/dL, Range (0.2-1.2), Protein, Total 7.5 g/dL, Range (5.8-8.1), NOTE: Plasma values are generally 0.3 to 0.5 g/dL higher than serum values, due to the presence of fibrinogen. , *Albumin 3.3 - L g/dL, Range (3.4-4.8), *Globulin 4.2 - H g/dL, Range (2.4-3.5), *Alb/Glob Ratio 0.8 - L g/dL, Range (1.2-2.2), *Alkaline Phosphatase 157 - H U/L, Range (40-150), AST (SGOT) 22 U/L, Range (5-34), ALT (SGPT) 19 U/L, Range (0-55). (15:21 [facility]) Urinalysis with Microscopic Collection DT: MonOct 10, 2016 14:42, Color Yellow , Range (Yellow), Clarity Cloudy , Range (Clear), Specific [place], Urine 1.010 , Range (1.005-1.030), pH, Urine 5.5 , Range (5.0-9.0), *Leukocyte Large - H , Range (Negative), Nitrite Negative , Range (Negative), *Protein, Urine (Dipstick) 100 - H mg/dL, Range (Neg-Trace), Glucose, Urine (Dipstick) Negative mg/dL, Range (Negative), Ketone, Urine Negative mg/dL, Range (Negative), Urobilinogen 0.2 mg/dL, Range (0.2-1.0), Bilirubin Negative , Range (Negative), *Blood, Urine Moderate - H , Range (Negative), *RBC/HPF 7-10 - H HPF, Range (0-3), *WBC/HPF 21-50 - H HPF, Range (0-3), *Squamous Epithelial 11-20 - H HPF, Range (0-3), *Bacteria/HPF 3+ - H HPF, Range (None Seen). (15:21 [facility]) MICROBIOLOGY: Influenza A&B Ag Screen: [id number] Collection DT: MonOct 10, 2016 14:01, See comment below , @ ER ROOM#: [id number] Source: Nasal swab Spec Desc: , Influenza A Antigen: NEGATIVE for the , &a-1R&a+25V*p+0X*[id number]*c202B*c15G*c2P*p-0X&a-25V&a+1R Name: Donya Sutton : 1950 F66 MedRec: [id number] AcctNum: [id number] Prepared: MonOct 10, 2016 16:33 by Interface Page 13 of 14 pMD [facility] EMERGENCY RECORD presence of , INFLUENZA A Antigen , Influenza B Antigen: NEGATIVE for the , presence of , INFLUENZA B Antigen , The rapid Flu A&B test can distinguish between influenza A , Influenza A&B Ag Screen See comment below , and B viruses, but it does not differentiate influenza , Influenza A&B Ag Screen See comment below , subtypes. , Influenza A&B Ag Screen See comment below , Influenza A&B Ag Screen See comment below , Influenza A&B Ag Screen See comment below , Influenza A&B Ag Screen See comment below , characteristics of this device with human specimens infected , Influenza A&B Ag Screen See comment below , with the 2008 H1N1 influenza virus have not been , Influenza A&B Ag Screen See comment below , established. For example: this test cannot distinguish , Influenza A&B Ag Screen See comment below , influenza infections caused by novel H1N1 influenza A , Influenza A&B Ag Screen See comment below , viruses versus seasonal influenza A viruses. , Influenza A&B Ag Screen See comment below , , Influenza A&B Ag Screen See comment below , A negative result does not exclude influenza virus , Influenza A&B Ag Screen See comment below , infection; therefore, if more conclusive testing is desired, , Influenza A&B Ag Screen See comment below , follow up confirmatory testing is warranted., Influenza A&B Ag Screen See comment below . (15:21 DANIELLE) Rosado: DANIELLE=MD Ferny, Morgan HAYDEN=LINDY Cavazos, Maxx PICKETT=LINDY Hill, Julia &a-1R&a+25V*p+0X*[id number]*c202B*c15G*c2P*p-0X&a-25V&a+1R Name: SammRamy barnesavani Jacob : 1950 F66 MedRec: [id number] AcctNum: [id number] Prepared: MonOct 10, 2016 16:33 by Interface Page 14 of 14 pMD MTDD
--- NOTE | 2016-10-10 15:56 | RAD ---
PORTABLE CHEST: COMPARISON: 11/16/2010 study. HISTORY: Fever, chills, vomiting. FINDINGS: Heart size and mediastinum are within normal limits. The lungs are clear of any focal infiltrates. There are not significant bony findings. IMPRESSION: No active intrathoracic disease. POS: [facility]
[2016-10-10] MEDS ORDERED: Temazepam 15 MG CAP PO PRN (16:18)
[2016-10-10] MEDS ORDERED: Dextrose 50% Abboject 50 ML SYRINGE SLOW IVP PRN (16:18)
[2016-10-10] MEDS ORDERED: Dextrose 5% in Water 1,000 ML IV PRN (16:18)
[2016-10-10] MEDS ORDERED: HumaLOG 300 UNITS/3 ML VIAL SC PRN (16:18)
[2016-10-10] MEDS ORDERED: Ondansetron ODT 4 MG TAB PO PRN (16:18)
[2016-10-10] MEDS ORDERED: Acetaminophen 325 MG TAB PO PRN (16:18)
[2016-10-10] MEDS ORDERED: cloNIDine HCl 0.1 MG TAB PO PRN (16:24)
[2016-10-10] MEDS: Ferrous Sulfate 325 MG TAB PO SCH (17:00)
[2016-10-10] MEDS ORDERED: Potassium Chloride 20 MEQ TAB PO SCH (20:15)
--- NOTE | 2016-10-10 21:20 | HP ---
DATE OF SERVICE: 10/10/2016 CHIEF COMPLAINT: Fever and chills. HISTORY OF PRESENT ILLNESS: The patient is a 66-year-old -[place] female with a past medical history of hypertension, type 2 diabetes, GERD, coronary artery disease, and osteoarthritis, who presented to the ER with a 3- day history of fever and chills. The patient states that she was visiting her daughter and started becoming very cold needing to use a blanket. She states she felt really hot and would start to sweat, but she was never able to check her temperature. The patient also noted weakness and some back pain over that period of time and today her daughter states she needed to go to the hospital, and so brought her to [place]. In the ER, she was found to be tachycardic with an initial pulse of 132 and a temperature of 99.6. On further examination, the patient was found to have a white count of 17,000 with 80% neutrophils and urinalysis indicative of infection. The patient denied abdominal pain, but did state that she noticed a change in the color of her urine. She also endorses left-sided back pain. The patient takes diclofenac at home for arthritis pain. She states she called the ER over the weekend and they recommended she take motrin for her pain and fever. She took 2 nsaids the past 2 days. PAST MEDICAL HISTORY: 1. GERD. 2. Diabetes type 2. 3. Osteoarthritis. 4. Hypertension. 5. Coronary artery disease. 6. Anemia of chronic disease. PAST SURGICAL HISTORY: Cholecystectomy. ALLERGIES: No known drug allergies. MEDICATIONS: 1. Protonix 40 mg p.o. daily. 2. Vitamin D3 of 400 mg p.o. daily. 3. Ferrous sulfate 325 mg p.o. b.i.d. 4. HCTZ 25 mg p.o. daily. 5. Lantus 8 units subcutaneous daily. 6. Losartan 100 mg p.o. daily. 7. Diclofenac 75 mg p.o. b.i.d. SOCIAL HISTORY: Patient lives alone and has a remote smoking, alcohol use history, but she does not use either presently. FAMILY HISTORY: Mom had heart disease. REVIEW OF SYSTEMS: General: Positive for fever, chills, and fatigue. Eyes: Negative for vision changes and eye pain. HEENT: Negative for sore throat, rhinorrhea, or nasal congestion. Cardiovascular: Negative for chest pain, palpitations, and orthopnea. Respiratory: Negative for cough, congestion, shortness of breath. Gastrointestinal: Negative for abdominal pain, nausea, vomiting, or diarrhea. Genitourinary: Positive for dysuria. Positive for possible hematuria. Musculoskeletal: Positive for left-sided back pain, but denies other joint pains. Skin: Negative for new rashes or jaundice. Neurologic: Negative for syncope and seizure. Psychiatric: Negative for anxiety or depression. PHYSICAL EXAMINATION: VITAL SIGNS: Blood pressure initially 134/61 and currently 108/62, pulse 132, which is decreased to 106, O2 sat 100% on room air, respiration rate 18, temperature 99.6. GENERAL: The patient is awake, alert, oriented in no acute distress. EYES: Pupils are equal, round, reactive to light and accommodation. Extraocular muscles intact. HEENT: Oropharynx and nasopharynx are without erythema or exudate. Mucous membranes are somewhat dry. Patient has poor dentition. NECK: Supple without lymphadenopathy, thyromegaly, or bruits. CARDIOVASCULAR: Patient is mildly tachycardic without murmurs, gallops, or rubs. LUNGS: Clear to auscultation bilaterally without wheezing or rhonchi. ABDOMEN: Soft, nontender, nondistended, bowel sounds present. There is no guarding or rebound tenderness. MUSCULOSKELETAL: Patient has left-sided CVA tenderness, patient has full range of motion of all extremities. Strength 5/5 throughout. SKIN: No rashes, lesions, or jaundice noted. EXTREMITIES: There is no clubbing, cyanosis, or edema. NEUROLOGIC: Cranial nerves II through XII are grossly intact. Deep tendon reflexes 2/4. PSYCHIATRIC: Patient displays an appropriate mood and affect during the exam. LABORATORY AND X-RAY FINDINGS: 1. Urinalysis: Protein 100, blood moderate, leukocytes large, red blood cells 7-10, white blood cells 21-50, bacteria 3+. 2. CMP: Sodium 135, potassium 3.2, chloride 108, bicarb 14, BUN 41, creatinine 2.72, glucose 195. Calcium 8.8, total bilirubin 1.8, AST 22, ALT 19 , alkaline phosphatase 157, total protein 7.5, albumin 3.3. 3. Lipase less than 4. 4. CBC: WBC 17.5, hemoglobin 9.0, hematocrit 27.4, platelets 130, neutrophils 80%, bands 9. 5. Chest x-ray shows no acute intrathoracic disease. 6. Influenza A and B negative. ASSESSMENT AND PLAN: The patient is a 66-year-old -[place] female who presented with fever and chills. 1. Urinary tract infection: The patient does have left CVA tenderness to meet criteria for pyelonephritis. She will be treated with 2 grams of Rocephin. Blood and urine cultures are already pending. We will trend the patient's white count and Tylenol as needed for fever. 2. Acute renal failure: The patient's baseline creatinine is 1.12 in September labs from my office. This is likely due to her urinary tract infection and dehydration. The patient will be placed on IV fluids at 125 now. We will trend her creatinine and monitor urine output. We will also hold nephrotoxic agents including hydrochlorothiazide, diclofenac, and losartan at this time. 3. Hypokalemia: This is mild. We will replace with oral potassium and recheck in the morning. 4. Hypertension: The patient's blood pressure is currently well controlled. We will have clonidine as needed for elevated blood pressures, as we are holding her HCTZ and losartan overnight see her kidney function does. 5. Type 2 diabetes: We will continue the patient's home Lantus of 8 units daily. Her last hemoglobin A1c in September was 6.7. Patient will have Accu- Cheks q.a.c. and at bedtime and place on mild sliding scale insulin. 7. Anemia of chronic disease. The patient's hemoglobin is stable. Last hemoglobin in September was 8.6. We will continue her iron supplementation and monitor blood counts. 8. Gastroesophageal reflux disease: Patient will continue home Protonix. 9. Patient will have sequential compression devices. MTDD
[2016-10-11] MEDS: Sodium Chloride 0.9% 1,000 ML IV SCH ×4 (00:03→16:55)
[2016-10-11 05:55] LABS: Anion Gap 12 mmol/L (10-20); BUN (Urea Nitrogen) 42 mg/dL (9.8-20.1); Calc. Creatinine Clearance 21 mL/min (70-130); Calcium 7.9 mg/dL (7.8-10.44); Carbon Dioxide 13 mmol/L (23-31); Chloride 119 mmol/L (98-107); Estimated GFR-MDRD 25
[2016-10-11 06:14] LABS: Hematocrit 24.6 % (36.0-47.0); Mean Platelet Volume 9.4 fL (7.4-10.4); Red Blood Cell (RBC) Count 2.79 mill/uL (4.20-5.40); White Blood Cell (WBC) Count 14.6 thou/uL (4.8-10.8)
[2016-10-11 06:15] LABS: Anisocytosis SLIGHT = 6-15 cells (100X) (0-5/hpf); Band 6 % (5-11); Hypochromia MODERATE=16-30 cells (100X) (0-5/hpf); Neutrophil 87 % (42-75)
[2016-10-11] MEDS: Ferrous Sulfate 325 MG TAB PO SCH ×2 (08:05→16:54)
[2016-10-11] MEDS: Levemir Flexpen 100 UNITS/ML PEN SC SCH (08:05)
[2016-10-11] MEDS: Cholecalciferol (Vitamin D3) 400 UNITS TAB PO SCH (08:05)
--- NOTE | 2016-10-11 09:38 | PRG ---
DATE OF SERVICE: 10/11/2016 CHIEF COMPLAINT: Bodyaches. SUBJECTIVE: The patient is a 66-year-old -[place] female who presented with fever and chill s and subsequently found to have a urinary tract infection. The patient states that overnight, she began feeling a little bit better. She states that all of her muscles were sore from having chills for the past couple of days. She denies abdominal pain and dysuria and states that her back pain is slowly improving. OBJECTIVE: VITAL SIGNS: Temperature 98.4, pulse 108, respiration rate 20, O2 sat 99% on room air, blood pressu re 120/58. GENERAL: The patient is awake, alert, oriented, in no acute distress. HEENT: Mucous membranes are moist. There is no erythema or exudate. CARDIOVASCULAR: The patient is mildly tachycardic without murmurs, gallops, or rubs. The patient's rhythm is regular. RESPIRATORY: Lungs clear to auscultation bilaterally without wheezing or rhonchi. ABDOMEN: Soft, nontender, nondistended with bowel sounds present. MUSCULOSKELETAL: The patient still has mild left-sided CVA tenderness, but this is improved from ye . EXTREMITIES: No clubbing, cyanosis, or edema. LABORATORY: 1. CBC: WBCs 14.6, hemoglobin 7.8, hematocrit 24.6, platelet count 128. 2. BMP: Sodium 140, potassium 3.8, chloride 119, bicarbonate 13, BUN 42, creatinine 2.37, glucose 195, calcium 7.9. ASSESSMENT AND PLAN: 1. Pyelonephritis: The patient will remain on Rocephin. Leukocytosis is slowly improving. The p atient has remained afebrile overnight. We will await urine cultures. The patient also has Tylenol as needed for bodyaches. 2. Acute kidney injury/acute renal failure: The patient's creatinine has improved from 2.7 to 2.37 with IV fluids overnight. Encourage the patient to continue eating and drinking. We will continue IV fluids and monitor the creatinine. 3. Tachycardia. I think this is likely associated with her infection. We will continue to monitor and she is asymptomatic at this time. 4. Hypokalemia: This is improved with p.o. potassium back to normal. 5. Hypertension: Blood pressure is controlled despite holding HCTZ and losartan. 6. Type 2 diabetes: Monitor Accu-Cheks and continue sliding scale insulin.
[2016-10-11] MEDS ORDERED: Sodium Chloride 0.9% 10 ML ONE (11:03)
[2016-10-11] MEDS: HumaLOG 300 UNITS/3 ML VIAL SC PRN ×2 (11:25→16:55)
[2016-10-11] MEDS: cefTRIAXone\\ROCEPHIN 2 GM in Sodium Chloride 0.9% 100 ML IVPB SCH (15:06)
[2016-10-12] MEDS: Sodium Chloride 0.9% 1,000 ML IV SCH ×5 (02:08→18:35)
[2016-10-12 06:01] LABS: Anion Gap 9 mmol/L (10-20); BUN (Urea Nitrogen) 35 mg/dL (9.8-20.1); Calc. Creatinine Clearance 25 mL/min (70-130); Calcium 7.9 mg/dL (7.8-10.44); Carbon Dioxide 13 mmol/L (23-31); Chloride 122 mmol/L (98-107); Estimated GFR-MDRD 31
[2016-10-12 06:30] LABS: Hematocrit 22.3 % (36.0-47.0); Mean Platelet Volume 8.7 fL (7.4-10.4); Red Blood Cell (RBC) Count 2.55 mill/uL (4.20-5.40); White Blood Cell (WBC) Count 13.1 thou/uL (4.8-10.8)
[2016-10-12 06:31] LABS: Anisocytosis SLIGHT = 6-15 cells (100X) (0-5/hpf); Band 10 % (5-11); Hypochromia MODERATE=16-30 cells (100X) (0-5/hpf); Neutrophil 70 % (42-75); Target Cells SLIGHT = 2-5 cells (100X) (0-1/hpf)
[2016-10-12] MEDS: Ferrous Sulfate 325 MG TAB PO SCH ×2 (08:50→17:08)
[2016-10-12] MEDS: Cholecalciferol (Vitamin D3) 400 UNITS TAB PO SCH (08:51)
[2016-10-12] MEDS: Levemir Flexpen 100 UNITS/ML PEN SC SCH (08:51)
[2016-10-12] MEDS: HumaLOG 300 UNITS/3 ML VIAL SC PRN (12:01)
[2016-10-12] MEDS ORDERED: Potassium Chloride 20 MEQ TAB PO SCH (13:00)
--- NOTE | 2016-10-12 13:21 | PRG ---
DATE OF SERVICE: 10/12/2016 SUBJECTIVE: The patient states she is feeling better. Nursing reports that the patient was able to walk with physical therapy and is doing well. The patient states her pain is improving as well. OBJECTIVE: VITAL SIGNS: Temperature 97.0, pulse 98, respiration rate 20, O2 sat 98% on room air, blood pressur e 145/65. GENERAL: The patient is awake, alert, and oriented and in no acute distress. HEENT: Oropharynx is within normal limits. Mucous membranes are moist. There is no erythema or ex udate. CARDIOVASCULAR: Regular rate and rhythm without murmurs, gallops, or rubs. LUNGS: Clear to auscultation bilaterally without wheezing or rhonchi. ABDOMEN: Soft, nontender, nondistended with bowel sounds present. EXTREMITIES: There is no clubbing, cyanosis, or edema. PSYCHIATRIC: The patient displays an appropriate mood and affect during the exam. LABORATORY: 1. CBC: WBC 13.1, hemoglobin 7.1, hematocrit 22.3, platelet count 146. 2. BMP: Sodium 141, potassium 3.4, chloride 122, bicarb 13, BUN 35, creatinine 1.94, glucose 63, c alcium 7.9. 3. Blood cultures 2/2 positive for E. coli. ASSESSMENT AND PLAN: 1. Escherichia coli bacteremia secondary to urinary tract infection. The patient will continue Robson ephin. We are waiting on final sensitivities. The patient is sensitive to oral agents. She will l ikely be able to be discharged home on a prolonged course of antibiotics. Leukocytosis is improving . We will repeat a CBC in the morning. 2. Hypokalemia: The patient will have potassium replaced orally. 3. Chronic anemia: The patient's hemoglobin has dropped a little bit more to 7.1. The patient has remained on IV fluids due to the acute renal failure. This is likely a dilutional effect, but the patient denies dizziness at this time. We will continue to monitor and continue oral iron replaceme nt. 4. Acute renal failure: The patient's kidney function is slowly improving and it is down to 1.94 today. We will cut the patient's IV fluids in half and continue to encourage p.o. intake. Repeat a BMP in the morning. 5. Hypertension: HCTZ and losartan are being held and the patient's blood pressures remained relat ively stable. 6. Type 2 diabetes: The patient will continue her insulin. Blood sugars are well controlled.
[2016-10-12] MEDS: cefTRIAXone\\ROCEPHIN 2 GM in Sodium Chloride 0.9% 100 ML IVPB SCH (15:47)
[2016-10-12 17:52] VITALS: BMI 21.3
[2016-10-13 05:18] LABS: Band 6 % (5-11); Mean Platelet Volume 8.2 fL (7.4-10.4); Neutrophil 63 % (42-75); Red Blood Cell (RBC) Count 2.45 mill/uL (4.20-5.40)
[2016-10-13 05:26] LABS: Anion Gap 10 mmol/L (10-20); BUN (Urea Nitrogen) 23 mg/dL (9.8-20.1); Calc. Creatinine Clearance 30 mL/min (70-130); Carbon Dioxide 13 mmol/L (23-31); Chloride 121 mmol/L (98-107); Estimated GFR-MDRD 38
[2016-10-13 08:41] VITALS: BP 131/70; TEMP 98.6
[2016-10-13] MEDS: Cholecalciferol (Vitamin D3) 400 UNITS TAB PO SCH (08:47)
[2016-10-13] MEDS: Ferrous Sulfate 325 MG TAB PO SCH (08:47)
[2016-10-13] MEDS: Levemir Flexpen 100 UNITS/ML PEN SC SCH (08:48)
[2016-10-13] MEDS: Sodium Chloride 0.9% 1,000 ML IV SCH (08:51)
[2016-10-13] MEDS ORDERED: Potassium Chloride 20 MEQ TAB PO SCH (10:00)
--- NOTE | 2016-10-13 17:55 | DIS ---
DATE OF ADMISSION: 10/10/2016 DATE OF DISCHARGE: 10/13/2016 DISCHARGE DIAGNOSES: 1. Escherichia coli bacteremia. 2. Urinary tract infection. 3. Hypokalemia. 4. Acute renal failure. 5. Anemia of chronic disease. 6. Type 2 diabetes. 7. Hypertension. DISCHARGE MEDICATIONS: 1. Levaquin 750 mg 1 p.o. q.48 hours. 2. Iron sulfate 325 mg 1 p.o. b.i.d. 3. Protonix 40 mg p.o. daily. 4. Vitamin D3 400 units p.o. daily. 5. Levemir 60 units subcutaneous q.a.m. HOSPITAL COURSE: The patient is a 66-year-old female who presented to the ER with fever, chills, and dysuria. The patient was found to have a urinary tract infection and admitted an d placed on antibiotics. Blood cultures were positive x2 for E. coli. Sensitivities returned today showing that she was sensitive to multiple oral medications and will be transitioned to Levaquin. The patient's pain is completely resolved. Her white count has decreased from 17.5-12 and her creat inine has improved from 2.7-1.63. The patient is eating and drinking normally. She is back to [place] and was requesting to go home. The patient was placed on IV fluids with the course of hospital ization to help with her dehydration and acute renal failure. This causes delusional fact, her hemo globin decreased from 9.0 on admission to 7.0. The patient is asymptomatic from an anemia standpoin t. The patient will be discharged home and will follow up with me in the clinic next week. DISPOSITION: 1. The patient will be discharged home. She already has home health and her home health company wi ll be contacted. 2. Diet: Diabetic. 3. Activity: ad jimy. 4. The patient will follow up with me in 5 days.
== END 2016-10-13 10:25 | disposition home or self-care (01) | DRG 690 ==
LOC: NAV ERS 12:49 → UNDOADMIN 15:48 → NAV ACUTE 15:48
PROVIDERS: ADMIT Family Medicine; ATTEND Family Medicine
DX: N39.0 Urinary tract infection, site not specified (principal); N17.9 Acute kidney failure, unspecified; R78.81 Bacteremia; I10 Essential (primary) hypertension; E11.9 Type 2 diabetes mellitus without complications; B96.20 Unspecified Escherichia coli [E. coli] as the cause of diseases classified elsewhere; E86.0 Dehydration; N12 Tubulo-interstitial nephritis, not specified as acute or chronic; E87.6 Hypokalemia; D63.8 Anemia in other chronic diseases classified elsewhere; R00.0 Tachycardia, unspecified; K21.9 Gastro-esophageal reflux disease without esophagitis; I25.10 Atherosclerotic heart disease of native coronary artery without angina pectoris; M19.90 Unspecified osteoarthritis, unspecified site
CPT/HCPCS: 36415; 36416; 71010; 80048; 80053; 81001; 83690; 85025; 87040; 87077; 87086; 87149; 87186; 96361; 96365; A4216; J0696; J1815; J7050

== ENCOUNTER 2016-10-20 12:40 | Emergency (ER) | payer MEDICARE, OTHER ==
--- NOTE | 2016-10-20 13:28 | ERRECORD ---
[facility] EMERGENCY RECORD HPI EXTREMITY (13:26 BLEW) CHIEF COMPLAINT: Patient presents for evaluation of swelling. HISTORIAN: History provided by patient, Patient was "rubbing and picking" to get adhesive tape off her right forearm when she got a swelling there. Occurred this morning. No trauma. Area is somewhat tender to palpation. No insect bite. No other known etiology. MECHANISM OF INJURY: Unknown mechanism. LOCATION: Symptoms are localized. QUALITY: Pain is dull in nature. SEVERITY: Maximum severity of symptoms mild, Currently there are no symptoms. TIME COURSE: Sudden onset of symptoms, There has been no change in the patient's symptoms over time, are constant. ASSOCIATED WITH: No associated symptoms. EXACERBATED BY: Patient's condition exacerbated by nothing. RELIEVED BY: Patient's condition relieved by nothing, Patient's condition relieved by nothing because patient has not tried anything for relief. ROS (13:28 BLEW) CONSTITUTIONAL: Negative constitutional review of systems. EYES: Negative eye review of systems. ENT: Negative ears, nose, throat review of systems. CARDIOVASCULAR: Negative cardiovascular review of systems. RESPIRATORY: Negative respiratory review of systems. GI: Negative gastrointestinal review of systems. MUSCULOSKELETAL: Negative musculoskeletal review of systems. SKIN: Negative skin review of systems. PSYCHIATRIC: Negative psychiatric review of systems. NOTES: All other ROS is negative except as listed in HPI. PAST MEDICAL HISTORY MEDICAL HISTORY: Notes: as listed, Flu vaccine up to date, Tetanus immunization up to date, Pneumococcal vaccine up to date, Flu vaccine up to date, Tetanus immunization up to date, Pneumococcal vaccine up to date, Flu vaccine up to date, Tetanus immunization up to date, Pneumococcal vaccine up to date, Past medical history includes history of hypertension, Patient is noncompliant, did not take today, Past medical history includes history of diabetes, Type II, on insulin,. (12:57 GHIA) FEMALE SURGICAL HISTORY: as listed, ORIF R arm/ elbow, Surgical history of cholecystectomy, open, Notes: over 20 years. (12:57 GHIA) PSYCHIATRIC HISTORY: No previous psychiatric history. (12:57 GHIA) SOCIAL HISTORY: Social History includes lives with daughter, Patient denies alcohol use, Patient denies drug use, Patient has no smoking history, Patient denies alcohol use, Patient denies drug use, Patient has no smoking history,. (12:57 &a-1R&a+25V*p+0X*c3810B*c202B*c15G*c2P*p-0X&a-25V&a+1R Name: Donya Sutton : 1950 F66 MedRec: [id number] AcctNum: [id number] Prepared: Eliane Oct 20, 2016 16:15 by Interface Page 1 of 3 pMD [facility] EMERGENCY RECORD GHIA) FAMILY HISTORY: Family istory is not significant, Maternal history of cardiac disease, PT STATES MOTHER HAD HEART SURGERY, Sibling history of cardiac disease:, coronary artery disease. (12:57 GHIA) NOTES: I have reviewed and agree with the PMH/PSxH/FamHx/SocHx obtained by the nurse. (13:28 BLEW) KNOWN ALLERGIES No Known Allergies (Unconfirmed) No Known Drug Allergies NONE (Unconfirmed) CURRENT MEDICATIONS No recorded medications VITAL SIGNS (12:51 GHIA) VITAL SIGNS: BP: 173/75, Pulse: 86, Resp: 18, Temp: 98.2 (Oral), Pain: 1, O2 sat: 93 on Room Air, Time: 10/20/2016 12:51. PHYSICAL EXAM (13:28 BLEW) CONSTITUTIONAL: Vital signs reviewed, Patient afebrile, Pulse normal, Blood pressure normal, Respiratory rate normal, Patient appears non toxic, Patient appears pain free, Patient alert and oriented to person, place and time. HEAD: Head exam included findings of head atraumatic, normocephalic. EYES: Eye exam included findings of eyelids normal to inspection, Pupils equally round and reactive to light, Extraocular muscles intact. ENT: ENT exam normal. NECK: Neck exam included findings of normal range of motion, Trachea midline. RESPIRATORY CHEST: Respiratory exam included findings of no respiratory distress, Breath sounds clear, Chest exam included findings of chest movement symmetrical, Chest expansion equal. CARDIOVASCULAR: Cardiovascular exam included findings of heart rate regular rate and rhythm, Heart sounds normal. UPPER EXTREMITY: Patient has localized area of swelling on dorsum of right forearm (at the distal 1/3). This is soft with mild tenderness. No discoloration. It is moveable and is clearly subQ in nature. No warmth. All flexor and extensor tendon working (alghout she has some deviation of fingers due to arthritis). Normal radial/ulnar pulses. Normal sensation. Normal ROM at elbow and wrist. NEURO: Neuro exam findings include patient oriented to person, place and time, Speech normal. PSYCHIATRIC: Psychiatric exam included findings of patient oriented to person place and time, Normal affect. &a-1R&a+25V*p+0X*h6294R*c202B*c15G*c2P*p-0X&a-25V&a+1R Name: Donya Sutton : 1950 F66 MedRec: [id number] AcctNum: [id number] Prepared: MonOct 20, 2016 16:15 by Interface Page 2 of 3 pMD [facility] EMERGENCY RECORD PROBLEM LIST No recorded problems DIAGNOSIS (13:11 BLEW) FINAL: PRIMARY: Forearm contusion. PRESCRIPTION No recorded prescriptions DISPOSITION PATIENT: Disposition Type: Discharge, Disposition: *Discharge Home. (13:11 BLEW) Patient left the department. (13:22 GHIA) Rosado: BLEW=DO Shea Brandon GHIA=LINDY Ventura, Rashmi &a-1R&a+25V*p+0X*l1392I*c202B*c15G*c2P*p-0X&a-25V&a+1R Name: Donya Sutton : 1950 F66 MedRec: [id number] AcctNum: [id number] Prepared: Eliane Oct 20, 2016 16:15 by Interface Page 3 of 3 pMD MTDD
--- NOTE | 2016-10-20 13:34 | PICIS ---
[facility] EMERGENCY RECORD TRIAGE (MonOct 20, 2016 12:54 GHIA) TRIAGE NOTES: Pt with edema to right forearm. (MonOct 20, 2016 12:54 GHIA) PATIENT: NAME: Donya Sutton, AGE: 66, GENDER: female, : Mon1950, TIME OF GREET: MonOct 20, 2016 12:41, PREFERRED LANGUAGE: [place] Islander, ETHNICITY: Not or , ECODE BILLING MAP: [facility], SSN: [id number], Zip Code: [address], KG WEIGHT: 55.34, PHONE: , , , PERSON ID: [id number], PCP: MD Suh Katherine. (MonOct 20, 2016 12:54 GHIA) COMPLAINT: RIGHT ARM SWELLING. (MonOct 20, 2016 12:54 GHIA) ADMISSION: URGENCY: 4 Non Urgent, ADMISSION SOURCE: Home, TRANSPORT: Walk-in, BED: TRIAGE. (MonOct 20, 2016 12:54 GHIA) ASSESSMENT: Assessment: pt with small soft lump to right forearm near wrist...pt states lump came up when she removed tape from site. (12:57 GHIA) PAIN: Patient complains of pain described as, Location right forearm, Pain is constant. (12:57 GHIA) IMMUNIZATIONS: Flu vaccine up to date, Tetanus immunization up to date, Pneumococcal vaccine up to date. (12:57 GHIA) SIRS SCORING: Heart Rate 55-109 (0), Temp range 96.8-101.1 (0), respiratory rate 12-24 (0), Mental Status altered: no (0). (12:57 GHIA) TRIAGE SCREENING: Patient denies suicidal ideation, Patient denies presence of domestic violence. (12:57 GHIA) TREATMENTS IN PROGRESS: Treatments given Prehospital: scheduled meds only today; no pain meds. (12:57 GHIA) PROVIDERS: TRIAGE NURSE: Rashmi Ventura RN. ([facility] Oct 20, 2016 12:54 GHIA) VITAL SIGNS: BP 173/75, Pulse 86, Resp 18, Temp 98.2, (Oral), Pain 1, O2 Sat 93, on Room Air, Time 10/20/2016 12:51. (12:51 GHIA) PREVIOUS VISIT ALLERGIES: No Known Drug Allergies. (Eliane Oct 20, 2016 12:54 GHIA) No Known Drug Allergies. (12:57 GHIA) KNOWN ALLERGIES No Known Allergies (Unconfirmed) No Known Drug Allergies NONE (Unconfirmed) CURRENT MEDICATIONS No recorded medications VITAL SIGNS (12:51 GHIA) VITAL SIGNS: BP: 173/75, Pulse: 86, Resp: 18, Temp: 98.2 (Oral), Pain: 1, O2 sat: 93 on Room Air, Time: 10/20/2016 12:51. NURSING ASSESSMENT: HEAD-TO-TOE (12:57 GHIA) CONSTITUTIONAL: Patient arrives ambulatory, Gait steady, History obtained from patient, Patient appears comfortable, Patient &a-1R&a+25V*p+0X*m8453M*c202B*c15G*c2P*p-0X&a-25V&a+1R Name: Donya Sutton : 1950 F66 MedRec: [id number] AcctNum: [id number] Prepared: MonOct 20, 2016 16:21 by Interface Page 1 of 5 pMD [facility] EMERGENCY RECORD cooperative, Patient alert, Oriented to person, place and time, Skin warm, Skin dry, Skin normal in color, Mucous membranes pink, Mucous membranes moist, Patient is well-groomed, Patient complains of right arm edema, Pt in room in bed. Assess. Plan of care of pt in ER discussed,. PAIN: aching pain, right forearm, Onset of pain one hour ago, constant, on a scale 0-10 patient rates pain as 1, Pt states she pulled tape off forearm one hour ago then lump came up (pt had tape on forearm from recent hospitalization for chills). SKIN: Skin assessment findings include skin warm, Skin dry, Skin normal in color, Notes: intact. RESPIRATORY/CHEST: Respiratory assessment findings include respiratory effort easy. CARDIOVASCULAR: Cardiovascular assessment findings include heart rate normal. ABDOMEN: Abdomen assessment findings include abdomen symmetrical, no associated nausea, no associated vomiting, no associated diarrhea, no associated constipation. GENITOURINARY FEMALE: no associated urinary complaints. NOTES: Emotional support needed and given, Patient tolerated procedure well. SAFETY: Side rails up, Cart/Stretcher in lowest position, Family at bedside, Call light within reach, Hospital ID band on. NURSING PROCEDURE: DISCHARGE NOTE (13:18 GHIA) DISCHARGE: Patient discharged to home, ambulating without assistance, patient walking, accompanied by other family member, Summary of Care printed/ provided, Transition record given to patient, Discharge instructions given to patient, Simple or moderate discharge teaching performed, Above person(s) verbalized understanding of discharge instructions and follow-up care. BELONGINGS: Belongings remain with patient, Valuables remain with patient. NOTES: Patient tolerated procedure well. SAFETY: Notes: Pt/SO x 1 cheerful and attentive to dc instructions. NURSING PROCEDURE: NURSE NOTES NURSES NOTES: Notes: Er Dr at bedside. (13:11 GHIA) Notes: DC papers pending. (13:17 GHIA) HPI EXTREMITY (13:26 BLEW) CHIEF COMPLAINT: Patient presents for evaluation of swelling. HISTORIAN: History provided by patient, Patient was "rubbing and picking" to get adhesive tape off her right forearm when she got a swelling there. Occurred this morning. No trauma. Area is somewhat tender to palpation. No insect bite. No other known etiology. MECHANISM OF INJURY: Unknown mechanism. LOCATION: Symptoms are localized. &a-1R&a+25V*p+0X*f8789V*c202B*c15G*c2P*p-0X&a-25V&a+1R Name: Donya Sutton : 1950 F66 MedRec: [id number] AcctNum: [id number] Prepared: Eliane Oct 20, 2016 16:21 by Interface Page 2 of 5 D [facility] EMERGENCY RECORD QUALITY: Pain is dull in nature. SEVERITY: Maximum severity of symptoms mild, Currently there are no symptoms. TIME COURSE: Sudden onset of symptoms, There has been no change in the patient's symptoms over time, are constant. ASSOCIATED WITH: No associated symptoms. EXACERBATED BY: Patient's condition exacerbated by nothing. RELIEVED BY: Patient's condition relieved by nothing, Patient's condition relieved by nothing because patient has not tried anything for relief. ROS (13:28 BLEW) CONSTITUTIONAL: Negative constitutional review of systems. EYES: Negative eye review of systems. ENT: Negative ears, nose, throat review of systems. CARDIOVASCULAR: Negative cardiovascular review of systems. RESPIRATORY: Negative respiratory review of systems. GI: Negative gastrointestinal review of systems. MUSCULOSKELETAL: Negative musculoskeletal review of systems. SKIN: Negative skin review of systems. PSYCHIATRIC: Negative psychiatric review of systems. NOTES: All other ROS is negative except as listed in HPI. PAST MEDICAL HISTORY MEDICAL HISTORY: Notes: as listed, Flu vaccine up to date, Tetanus immunization up to date, Pneumococcal vaccine up to date, Flu vaccine up to date, Tetanus immunization up to date, Pneumococcal vaccine up to date, Flu vaccine up to date, Tetanus immunization up to date, Pneumococcal vaccine up to date, Past medical history includes history of hypertension, Patient is noncompliant, did not take today, Past medical history includes history of diabetes, Type II, on insulin,. (12:57 GHIA) FEMALE SURGICAL HISTORY: as listed, ORIF R arm/ elbow, Surgical history of cholecystectomy, open, Notes: over 20 years. (12:57 GHIA) PSYCHIATRIC HISTORY: No previous psychiatric history. (12:57 GHIA) SOCIAL HISTORY: Social History includes lives with daughter, Patient denies alcohol use, Patient denies drug use, Patient has no smoking history, Patient denies alcohol use, Patient denies drug use, Patient has no smoking history,. (12:57 GHIA) FAMILY HISTORY: Family istory is not significant, Maternal history of cardiac disease, PT STATES MOTHER HAD HEART SURGERY, Sibling history of cardiac disease:, coronary artery disease. (12:57 GHIA) NOTES: I have reviewed and agree with the PMH/PSxH/FamHx/SocHx obtained by the nurse. (13:28 BLEW) &a-1R&a+25V*p+0X*z8640D*c202B*c15G*c2P*p-0X&a-25V&a+1R Name: Donya Sutton : 1950 F66 MedRec: [id number] AcctNum: [id number] Prepared: Eliane Oct 20, 2016 16:21 by Interface Page 3 of 5 pMD [facility] EMERGENCY RECORD PHYSICAL EXAM (13:28 BLEW) CONSTITUTIONAL: Vital signs reviewed, Patient afebrile, Pulse normal, Blood pressure normal, Respiratory rate normal, Patient appears non toxic, Patient appears pain free, Patient alert and oriented to person, place and time. HEAD: Head exam included findings of head atraumatic, normocephalic. EYES: Eye exam included findings of eyelids normal to inspection, Pupils equally round and reactive to light, Extraocular muscles intact. ENT: ENT exam normal. NECK: Neck exam included findings of normal range of motion, Trachea midline. RESPIRATORY CHEST: Respiratory exam included findings of no respiratory distress, Breath sounds clear, Chest exam included findings of chest movement symmetrical, Chest expansion equal. CARDIOVASCULAR: Cardiovascular exam included findings of heart rate regular rate and rhythm, Heart sounds normal. UPPER EXTREMITY: Patient has localized area of swelling on dorsum of right forearm (at the distal 1/3). This is soft with mild tenderness. No discoloration. It is moveable and is clearly subQ in nature. No warmth. All flexor and extensor tendon working (alghout she has some deviation of fingers due to arthritis). Normal radial/ulnar pulses. Normal sensation. Normal ROM at elbow and wrist. NEURO: Neuro exam findings include patient oriented to person, place and time, Speech normal. PSYCHIATRIC: Psychiatric exam included findings of patient oriented to person place and time, Normal affect. EVENTS TRANSFER: Triage to Emergency Triage. (12:54 GHIA) Emergency Triage to Emergency Room -04. (12:57 BDON) Removed from Emergency Emergency Room -04. (13:22 GHIA) PROBLEM LIST No recorded problems DIAGNOSIS (13:11 BLEW) FINAL: PRIMARY: Forearm contusion. DISPOSITION PATIENT: Disposition Type: Discharge, Disposition: *Discharge Home. (13:11 BLEW) Patient left the department. (13:22 GHIA) INSTRUCTION (13:13 BLEW) DISCHARGE: CONTUSION, SOFT TISSUE. FOLLOWUP: MD Angeli, Michelle, [facility], [address], [address], [place] [facility] [address], , Follow up with Primary Care &a-1R&a+25V*p+0X*d2922F*c202B*c15G*c2P*p-0X&a-25V&a+1R Name: Donya Sutton : 1950 F66 MedRec: [id number] AcctNum: [id number] Prepared: [facility] Oct 20, 2016 16:21 by Interface Page 4 of 5 pMD [facility] EMERGENCY RECORD Physician in 5 days. SPECIAL: You should use a warm compress to the affected area 3-4 times a day. Use Tylenol as needed for pain. Follow up with your regular doctor if the swelling does not improve in the next 4-5 days. Call your doctor or return with worsening or worrisome symptoms. PRESCRIPTION No recorded prescriptions IMAGING *SUPPLY CHARGE SHEET: Image captured from scanner. (13:22 GHIA) DISCHAR: Image captured from scanner. (13:23 GHIA) ADMIN (16:12 BLEW) DIGITAL SIGNATURE: DO Shea Brandon. Rosado: BDON=LINDY Watkins Bettye BLEW=DO Shea Brandon GHIA=LINDY Ventura Geraldine &a-1R&a+25V*p+0X*e8915S*c202B*c15G*c2P*p-0X&a-25V&a+1R Name: Donya Sutton : 1950 F66 MedRec: [id number] AcctNum: [id number] Prepared: [facility] Oct 20, 2016 16:21 by Interface Page 5 of 5 pMD MTDD
== END 2016-10-20 13:18 | disposition home or self-care (01) ==
LOC: NAV ERS 12:40
DX: S50.11XA Contusion of right forearm, initial encounter (principal); I10 Essential (primary) hypertension; E11.9 Type 2 diabetes mellitus without complications; X58.XXXA Exposure to other specified factors, initial encounter
CPT/HCPCS: 99283

== ENCOUNTER 2016-10-24 17:38 | Emergency (ER) | payer MEDICARE, OTHER ==
--- NOTE | 2016-10-24 18:49 | ERRECORD ---
[facility] EMERGENCY RECORD HPI CONSTIPATION (18:08 JLOY) CHIEF COMPLAINT: Patient presents for evaluation of constipation, Patient presents for evaluation of rectal pain, Patient presents for evaluation of Pt with recurrent constipation due to iron suppliments. Took mag citrate 3 days ago and got a very hard stool out. None since but while she was sitting on the toilet straining earlier she had some blood drip out. No other symptoms. HISTORIAN: History provided by patient. LOCATION: No localizing symptoms. QUALITY: no pain. TIME COURSE: There has been no change in the patient's symptoms over time. ASSOCIATED WITH: No associated black tarry stools, Associated with hard stools, Associated with rectal bleeding, No associated vomiting, Associated with prior history of constipation, Associated with prior history of impaction. EXACERBATED BY: Patient's condition exacerbated by FeSO4. RELIEVED BY: Patient's condition relieved by nothing. ROS (18:10 JLOY) CONSTITUTIONAL: Historian denies chills, denies fever. RESPIRATORY: Historian denies cough, denies shortness of breath. GI: Historian denies abdominal pain, reports constipation, denies melena, denies nausea, denies vomiting. GENITOURINARY FEMALE: Historian denies dysuria, denies frequency, denies hematuria. NEUROLOGIC: Historian denies dizziness, denies headache. PAST MEDICAL HISTORY MEDICAL HISTORY: Past medical history includes hematological history, iron deficiency anemia, Notes: as listed, Flu vaccine up to date, Tetanus immunization up to date, Pneumococcal vaccine up to date, Past medical history includes history of hypertension, Past medical history includes history of diabetes, Type II, on insulin,. (17:55 MSPE) FEMALE SURGICAL HISTORY: ORIF R arm/ elbow, Surgical history of cholecystectomy, open, Notes: over 20 years. (17:55 MSPE) PSYCHIATRIC HISTORY: No previous psychiatric history. (17:55 MSPE) SOCIAL HISTORY: Social History includes lives with daughter, Patient denies alcohol use, Patient denies drug use, Patient has no smoking history. (17:55 MSPE) FAMILY HISTORY: Family istory is not significant, Maternal history of cardiac disease, PT STATES MOTHER HAD HEART SURGERY, Sibling history of cardiac disease:, coronary artery disease. (17:55 MSPE) NOTES: Nursing records reviewed, Agree with nursing records. (18:12 JLOY) &a-1R&a+25V*p+0X*b2953N*c202B*c15G*c2P*p-0X&a-25V&a+1R Name: Donya Sutton : 1950 F66 MedRec: [id number] AcctNum: [id number] Prepared: MonOct 24, 2016 19:11 by Interface Page 1 of 3 pMD [facility] EMERGENCY RECORD KNOWN ALLERGIES No Known Allergies (Unconfirmed) No Known Drug Allergies NONE (Unconfirmed) CURRENT MEDICATIONS Lantus: VIAL (ML) : Strength - 100 unit/mL : SUBCUTANEOUS Patient Dose: 6 units Subcutaneous once a day. (17:51 MSPE) hydrochlorothiazide: TABLET : Strength - 25 mg : ORAL Patient Dose: 1 tab(s) Oral once a day. (17:51 MSPE) levofloxacin: TABLET : Strength - 750 mg : ORAL Patient Dose: 1 tab(s) Oral every other day. (17:52 MSPE) losartan: TABLET : Strength - 100 mg : ORAL Patient Dose: 1 tab(s) Oral once a day. (17:52 MSPE) ferrous sulfate: TABLET : Strength - 325 mg (65 mg iron) : ORAL Patient Dose: 1 tab(s) Oral 2 times a day. (17:53 MSPE) VITAL SIGNS VITAL SIGNS: BP: 185/94, Pulse: 92, Resp: 16, Temp: 98.7 (Oral), Pain: 0, O2 sat: 100 on Room Air, Time: 10/24/2016 17:53. (17:53 MSPE) BP: 171/93, Pulse: 100, Resp: 19, O2 sat: 100% on RA, Time: 10/24/2016 18:51. (18:51 MSPE) PHYSICAL EXAM (18:10 JLOY) CONSTITUTIONAL: Vital signs reviewed, Patient appears non toxic, Patient alert and oriented to person, place and time. EYES: Eye exam included findings of eyelids normal to inspection, Pupils equally round and reactive to light, Conjunctiva normal. ENT: Mouth exam normal, mucous membranes moist. RESPIRATORY CHEST: Respiratory exam included findings of no respiratory distress, Breath sounds clear, No wheezing, No rales, No rhonchi, Chest exam included findings of chest movement symmetrical. CARDIOVASCULAR: Cardiovascular exam included findings of heart rate regular rate and rhythm, Heart sounds normal. ABDOMEN FEMALE: Abdominal exam included findings of abdomen tender, to the suprapubic region, minimal discomfort to deep palpation, Rectal exam abnormal, rectal tone normal, fecal impaction, digital disimpaction with no difficulties. No visible bleeding. NEURO: [place] coma scale 15, Neuro exam findings include patient oriented to person, place and time, Speech normal. PSYCHIATRIC: Normal affect. PROBLEM LIST No recorded problems &a-1R&a+25V*p+0X*e2924B*c202B*c15G*c2P*p-0X&a-25V&a+1R Name: Donya Sutton : 1950 F66 MedRec: [id number] AcctNum: [id number] Prepared: MonOct 24, 2016 19:11 by Interface Page 2 of 3 pMD [facility] EMERGENCY RECORD DIAGNOSIS (18:30 JLOY) FINAL: PRIMARY: FECAL IMPACTION. PRESCRIPTION No recorded prescriptions DISPOSITION PATIENT: Disposition Type: Discharge, Disposition: *Discharge Home. (18:30 JLOY) Patient left the department. (19:05 MSPE) Rosado: JLOY=MD Ferny, Morgan MSPE=LINDY Crane, Oriana &a-1R&a+25V*p+0X*e1718T*c202B*c15G*c2P*p-0X&a-25V&a+1R Name: Donya Sutton : 1950 F66 MedRec: [id number] AcctNum: [id number] Prepared: MonOct 24, 2016 19:11 by Interface Page 3 of 3 pMD MTDD
--- NOTE | 2016-10-24 18:58 | PICIS ---
[facility] EMERGENCY RECORD TRIAGE (17:50 MSPE) TRIAGE NOTES: "Bowels not moving"; now reports having red blood in toilet today. (17:50 MSPE) PATIENT: NAME: Donya Sutton, AGE: 66, GENDER: female, : Mon1950, TIME OF GREET: MonOct 24, 2016 17:40, PREFERRED LANGUAGE: Armenian, ETHNICITY: Not or , ECODE BILLING MAP: [facility], SSN: [id number], Zip Code: [address], KG WEIGHT: 57.15, PHONE: , , , PERSON ID: [id number], PCP: MD Suh Katherine. (17:50 MSPE) COMPLAINT: BLOOD IN STOOL,STATES ALOT. (17:50 MSPE) ADMISSION: URGENCY: 3 Urgent, ADMISSION SOURCE: Home, TRANSPORT: CAR, BED: ER -04. (17:50 MSPE) SIRS SCORING: Heart Rate 55-109 (0), Temp range 96.8-101.1 (0), respiratory rate 12-24 (0), Mental Status altered: no (0), Total SIRS Score 0. (17:55 MSPE) PROVIDERS: TRIAGE NURSE: Oriana Crane RN. (17:50 MSPE) VITAL SIGNS: BP 185/94, Pulse 92, Resp 16, Temp 98.7, (Oral), Pain 0, O2 Sat 100, on Room Air, Time 10/24/2016 17:53. (17:53 MSPE) PREVIOUS VISIT ALLERGIES: No Known Drug Allergies. (17:50 MSPE) No Known Drug Allergies. (17:55 MSPE) KNOWN ALLERGIES No Known Allergies (Unconfirmed) No Known Drug Allergies NONE (Unconfirmed) CURRENT MEDICATIONS Lantus: VIAL (ML) : Strength - 100 unit/mL : SUBCUTANEOUS Patient Dose: 6 units Subcutaneous once a day. (17:51 MSPE) hydrochlorothiazide: TABLET : Strength - 25 mg : ORAL Patient Dose: 1 tab(s) Oral once a day. (17:51 MSPE) levofloxacin: TABLET : Strength - 750 mg : ORAL Patient Dose: 1 tab(s) Oral every other day. (17:52 MSPE) losartan: TABLET : Strength - 100 mg : ORAL Patient Dose: 1 tab(s) Oral once a day. (17:52 MSPE) ferrous sulfate: TABLET : Strength - 325 mg (65 mg iron) : ORAL Patient Dose: 1 tab(s) Oral 2 times a day. (17:53 MSPE) VITAL SIGNS VITAL SIGNS: BP: 185/94, Pulse: 92, Resp: 16, Temp: 98.7 (Oral), Pain: 0, O2 sat: 100 on Room Air, Time: 10/24/2016 17:53. (17:53 MSPE) BP: 171/93, Pulse: 100, Resp: 19, O2 sat: 100% on RA, Time: 10/24/2016 18:51. (18:51 MSPE) &a-1R&a+25V*p+0X*p7242B*c202B*c15G*c2P*p-0X&a-25V&a+1R Name: Donya Sutton : 1950 F66 MedRec: [id number] AcctNum: [id number] Prepared: MonOct 24, 2016 19:17 by Interface Page 1 of 4 pMD [facility] EMERGENCY RECORD NURSING ASSESSMENT: ABDOMEN (18:01 MSPE) CONSTITUTIONAL: Patient arrives ambulatory, Gait steady, History obtained from patient, Patient appears comfortable, Patient cooperative, Patient alert, Oriented to person, place and time, Skin warm, Skin dry, Skin, pale in color. PAIN: denies abd pain; c/o pain on "my back side". ABDOMEN: no associated nausea, no associated vomiting, Associated with constipation, Date of last bowel movement: yesterday, sts small and hard stool, Notes: Pt reports taking Mag Citrate on "Fri or Sat" for constipation; had small, hard stool yesterday and today noticed bright red blood in toilet and on paper. Denies abd pain. LMP: Last menstrual period not applicable. GENITOURINARY FEMALE: Notes: denies urinary complaints. SAFETY: Side rails up, Cart/Stretcher in lowest position, Family at bedside, Call light within reach, Hospital ID band on. NURSING PROCEDURE: DISCHARGE NOTE (18:51 MSPE) DISCHARGE: Patient discharged to home, ambulating without assistance, family driving, accompanied by other family member, Summary of Care printed/ provided, Discharge instructions given to patient, Simple or moderate discharge teaching performed, Above person(s) verbalized understanding of discharge instructions and follow-up care, Patient treated and evaluated by physician. BELONGINGS: Belongings remain with patient. VITAL SIGNS: BP: 171, / 93, Pulse: 100, Resp: 19, O2 sat: 100%, on: RA. ORDER DETAILS Order Name: Occult Blood, Stool DIAGNOSTIC(Guiac), Status: Active, Time: 18:08 10/24/2016, User: DANIELLE, - Ordered for: MD Isaacs Joshua, - Entered by: MD Isaacs Joshua - MonOct 24, 2016 18:08, - Quantity: 1. HPI CONSTIPATION (18:08 DANIELLE) CHIEF COMPLAINT: Patient presents for evaluation of constipation, Patient presents for evaluation of rectal pain, Patient presents for evaluation of Pt with recurrent constipation due to iron suppliments. Took mag citrate 3 days ago and got a very hard stool out. None since but while she was sitting on the toilet straining earlier she had some blood drip out. No other symptoms. HISTORIAN: History provided by patient. LOCATION: No localizing symptoms. QUALITY: no pain. TIME COURSE: There has been no change in the patient's symptoms over time. ASSOCIATED WITH: No associated black tarry stools, Associated with hard stools, Associated with rectal bleeding, No associated vomiting, Associated with prior history of constipation, &a-1R&a+25V*p+0X*d6921C*c202B*c15G*c2P*p-0X&a-25V&a+1R Name: Donya Sutton : 1950 F66 MedRec: [id number] AcctNum: [id number] Prepared: MonOct 24, 2016 19:17 by Interface Page 2 of 4 pMD [facility] EMERGENCY RECORD Associated with prior history of impaction. EXACERBATED BY: Patient's condition exacerbated by FeSO4. RELIEVED BY: Patient's condition relieved by nothing. ROS (18:10 DANIELLE) CONSTITUTIONAL: Historian denies chills, denies fever. RESPIRATORY: Historian denies cough, denies shortness of breath. GI: Historian denies abdominal pain, reports constipation, denies melena, denies nausea, denies vomiting. GENITOURINARY FEMALE: Historian denies dysuria, denies frequency, denies hematuria. NEUROLOGIC: Historian denies dizziness, denies headache. PAST MEDICAL HISTORY MEDICAL HISTORY: Past medical history includes hematological history, iron deficiency anemia, Notes: as listed, Flu vaccine up to date, Tetanus immunization up to date, Pneumococcal vaccine up to date, Past medical history includes history of hypertension, Past medical history includes history of diabetes, Type II, on insulin,. (17:55 MSPE) FEMALE SURGICAL HISTORY: ORIF R arm/ elbow, Surgical history of cholecystectomy, open, Notes: over 20 years. (17:55 MSPE) PSYCHIATRIC HISTORY: No previous psychiatric history. (17:55 MSPE) SOCIAL HISTORY: Social History includes lives with daughter, Patient denies alcohol use, Patient denies drug use, Patient has no smoking history. (17:55 MSPE) FAMILY HISTORY: Family istory is not significant, Maternal history of cardiac disease, PT STATES MOTHER HAD HEART SURGERY, Sibling history of cardiac disease:, coronary artery disease. (17:55 MSPE) NOTES: Nursing records reviewed, Agree with nursing records. (18:12 JLOY) PHYSICAL EXAM (18:10 JLOY) CONSTITUTIONAL: Vital signs reviewed, Patient appears non toxic, Patient alert and oriented to person, place and time. EYES: Eye exam included findings of eyelids normal to inspection, Pupils equally round and reactive to light, Conjunctiva normal. ENT: Mouth exam normal, mucous membranes moist. RESPIRATORY CHEST: Respiratory exam included findings of no respiratory distress, Breath sounds clear, No wheezing, No rales, No rhonchi, Chest exam included findings of chest movement symmetrical. CARDIOVASCULAR: Cardiovascular exam included findings of heart rate regular rate and rhythm, Heart sounds normal. ABDOMEN FEMALE: Abdominal exam included findings of abdomen tender, to the suprapubic region, minimal discomfort to deep palpation, Rectal exam abnormal, &a-1R&a+25V*p+0X*y9019T*c202B*c15G*c2P*p-0X&a-25V&a+1R Name: Donya Sutton : 1950 F66 MedRec: [id number] AcctNum: [id number] Prepared: MonOct 24, 2016 19:17 by Interface Page 3 of 4 pMD [facility] EMERGENCY RECORD rectal tone normal, fecal impaction, digital disimpaction with no difficulties. No visible bleeding. NEURO: [place] coma scale 15, Neuro exam findings include patient oriented to person, place and time, Speech normal. PSYCHIATRIC: Normal affect. EVENTS TRANSFER: Triage to Emergency Emergency Room -04. (MonOct 24, 2016 17:50 MSPE) Removed from Emergency Emergency Room -04. (19:05 MSPE) PROBLEM LIST No recorded problems DIAGNOSIS (18:30 JLOY) FINAL: PRIMARY: FECAL IMPACTION. DISPOSITION PATIENT: Disposition Type: Discharge, Disposition: *Discharge Home. (18:30 JLOY) Patient left the department. (19:05 MSPE) INSTRUCTION (18:30 JLOY) DISCHARGE: FECAL IMPACTION, TREATED. FOLLOWUP: MD Angeli, Michelle, [facility], [address] [place] [address], [address], [place] [address], , Follow up with Primary Care Physician in 7-10 days. PRESCRIPTION No recorded prescriptions IMAGING (19:05 MSPE) *DISCHARGE INSTRUCTIONS RECEIPT: Image captured from scanner. *SUPPLY CHARGE SHEET: Image captured from scanner. ADMIN (18:30 JLOY) DIGITAL SIGNATURE: MD Isaacs Joshua. RESULTS (18:29 JLOY) MICROBIOLOGY: Occult Blood, Stool DIAGNOSTIC: [id number] Collection DT: MonOct 24, 2016 18:21, See comment below , @ ER ROOM#: ER-04 Source: Stool Spec Desc: PENDING, Fecal Occult Bld - Guaiac Negative for occult , blood . Rosado: DANIELLE=MD Isaacs Joshua MSPE=LINDY Crane, Oriana &a-1R&a+25V*p+0X*m9327S*c202B*c15G*c2P*p-0X&a-25V&a+1R Name: Donya Sutton : 1950 F66 MedRec: [id number] AcctNum: [id number] Prepared: MonOct 24, 2016 19:17 by Interface Page 4 of 4 pMD [facility] MEDICATION RECONCILIATION You were seen in the Emergency Department on: MonOct 24, 2016 KNOWN ALLERGIES No Known Allergies (Unconfirmed) No Known Drug Allergies NONE (Unconfirmed) HOME MEDICATIONS CONTINUE PRESCRIBED ferrous sulfate : TABLET : Strength - 325 mg (65 mg iron) : ORAL Continue as prescribed Patient had been takin tab(s) Oral 2 times a day. hydrochlorothiazide : TABLET : Strength - 25 mg : ORAL Continue as prescribed Patient had been takin tab(s) Oral once a day. Lantus : VIAL (ML) : Strength - 100 unit/mL : SUBCUTANEOUS Continue as prescribed Patient had been takin units Subcutaneous once a day. levofloxacin : TABLET : Strength - 750 mg : ORAL Continue as prescribed Patient had been takin tab(s) Oral every other day. losartan : TABLET : Strength - 100 mg : ORAL Continue as prescribed Patient had been takin tab(s) Oral once a day. &a-1R&a+25V*p+0X*q9311J*c202B*c15G*c2P*p-0X&a-25V&a+1R Name: Donya Sutton : 1950 F66 MedRec: [id number] AcctNum: [id number] Prepared: MonOct 24, 2016 19:17 by Interface pMDelmer BALL
== END 2016-10-24 18:51 | disposition home or self-care (01) ==
LOC: NAV ERS 17:38
DX: K56.41 Fecal impaction (principal); I10 Essential (primary) hypertension; E11.9 Type 2 diabetes mellitus without complications
CPT/HCPCS: 82272; 99283

== ENCOUNTER 2016-11-08 10:07 | Outpatient (CLI) | payer MEDICARE, OTHER ==
[2016-11-08 11:44] LABS: Hematocrit 25.4 % (36.0-47.0); Mean Platelet Volume 7.1 fL (7.4-10.4); Red Blood Cell (RBC) Count 2.85 mill/uL (4.20-5.40); White Blood Cell (WBC) Count 8.6 thou/uL (4.8-10.8)
[2016-11-08 11:45] LABS: Anisocytosis SLIGHT = 6-15 cells (100X) (0-5/hpf); Hypochromia SLIGHT = 6-15 cells (100X) (0-5/hpf); Neutrophil 63 % (42-75)
== END 2016-11-08 10:08 | disposition home or self-care (01) ==
LOC: NAV LAB 10:07
PROVIDERS: ATTEND Family Medicine
DX: R78.81 Bacteremia (principal); A41.51 Sepsis due to Escherichia coli [E. coli]; N17.9 Acute kidney failure, unspecified
CPT/HCPCS: 36416; 85025

== ENCOUNTER 2017-03-22 08:02 | Outpatient (CLI) | payer MEDICARE, MEDICAID ==
[2017-03-22 09:18] LABS: #Basophils 0.1 thou/uL (0.0-0.2); #Eosinphils 0.2 thou/uL (0.0-0.7); #Lymphocytes 1.9 thou/uL (1.20-3.40); #Monocytes 0.5 thou/uL (0.11-0.59); #Neutrophils 3.4 thou/uL (1.40-6.50); %Basophils 0.9 % (0.0-1.0); %Lymphocytes 30.4 % (21.0-51.0); %Monocytes 8.3 % (0.0-10.0); %Neutrophils 56.4 % (42.0-75.0); Hemoglobin 8.4 g/dL (12.0-16.0); Mean Corpuscular HGB CONC 30.6 g/dL (32.0-36.0); Mean Corpuscular Hemoglobin 26.2 pg (27.0-31.0); Mean Corpuscular Volume 85.7 fl (81.0-99.0); Mean Platelet Volume 8.4 fL (7.4-10.4); Platelet Count 186 thou/uL (130-400); RBC Distribution Width 12.8 % (11.5-14.5); White Blood Cell (WBC) Count 6.1 thou/uL (4.8-10.8)
[2017-03-22 09:39] LABS: ALT (SGPT) 19 U/L (8-55); AST (SGOT) 19 U/L (5-34); Albumin 3.8 g/dL (3.4-4.8); Alkaline Phosphatase 149 U/L (40-150); Anion Gap 14 mmol/L (10-20); BUN (Urea Nitrogen) 37 mg/dL (9.8-20.1); Bilirubin, Total 0.6 mg/dL (0.2-1.2); Calc. Creatinine Clearance 0 mL/min (70-130); Calcium 9.3 mg/dL (7.8-10.44); Carbon Dioxide 18 mmol/L (23-31); Cardiac Risk 2.5 (Less than 4.5); Chloride 112 mmol/L (98-107); Cholesterol 138 mg/dl (< 200 Desired); Estimated GFR-MDRD 48; Globulin 4.2 g/dL (2.4-3.5); Glucose 116 mg/dL (80-115); HDL Cholesterol 55 mg/dL (>60 Neg Risk); LDL Cholesterol, Calculated 72 mg/dL; Potassium 4.9 mmol/L (3.5-5.1); Sodium 139 mmol/L (136-145); Triglycerides 53 mg/dL (Less than 150)
== END 2017-03-22 08:03 | disposition home or self-care (01) ==
LOC: NAV LAB 08:02
PROVIDERS: ATTEND Family Medicine
DX: I12.9 Hypertensive chronic kidney disease with stage 1 through stage 4 chronic kidney disease, or unspecified chronic kidney disease (principal); E11.22 Type 2 diabetes mellitus with diabetic chronic kidney disease; N18.4 Chronic kidney disease, stage 4 (severe); D64.9 Anemia, unspecified
CPT/HCPCS: 36415; 80053; 80061; 83036; 85025

== ENCOUNTER 2017-04-13 07:56 | Outpatient (CLI) | payer MEDICARE, OTHER ==
--- NOTE | 2017-04-13 09:21 | ULT ---
BILATERAL RENAL ULTRASOUND: Date: 04/13/17 HISTORY: Chronic kidney disease. FINDINGS: The right kidney measures 9.3 cm in length and the left kidney measures 9.5 cm in length. Cortical e chogenicity and thickness is normal. No focal mass, hydronephrosis, or shadowing calculus is seen. T he pre-void urinary bladder volume is 78 mL with a post-void residual of 57 mL. IMPRESSION: Incomplete emptying of the urinary bladder, otherwise unremarkable exam. POS: OFF
[2017-04-13 09:32] LABS: Anion Gap 15 mmol/L (10-20); BUN (Urea Nitrogen) 30 mg/dL (9.8-20.1); Calc. Creatinine Clearance 0 mL/min (70-130); Calcium 9.6 mg/dL (7.8-10.44); Carbon Dioxide 18 mmol/L (23-31); Chloride 111 mmol/L (98-107); Estimated GFR-MDRD 45; Glucose 132 mg/dL (80-115); Phosphorus 3.8 mg/dL (2.3-4.7); Potassium 4.4 mmol/L (3.5-5.1); Sodium 140 mmol/L (136-145)
[2017-04-13 10:38] LABS: Follow-up Chemistry Comp? YES; Follow-up Result - Chemistry REPORT FAXED
[2017-04-13 18:04] LABS: Creatinine, Urine 30.89 mg/dL (47-110)
[2017-04-14 08:21] LABS: Follow-up Chemistry Comp? YES; Follow-up Hematology Comp? YES; Follow-up Result - Chemistry REPORT FAXED; Follow-up Result - Hematology REPORT FAXED
== END 2017-04-13 07:57 | disposition home or self-care (01) ==
LOC: NAV ULT 07:56
PROVIDERS: ATTEND Internal Medicine Nephrology
DX: E11.22 Type 2 diabetes mellitus with diabetic chronic kidney disease (principal); N18.4 Chronic kidney disease, stage 4 (severe); E11.00 Type 2 diabetes mellitus with hyperosmolarity without nonketotic hyperglycemic-hyperosmolar coma (NKHHC); I12.9 Hypertensive chronic kidney disease with stage 1 through stage 4 chronic kidney disease, or unspecified chronic kidney disease
CPT/HCPCS: 36415; 76770; 80048; 82306; 82570; 83970; 84100; 84156

== ENCOUNTER 2017-05-08 19:36 | Emergency (ER) | payer MEDICARE, OTHER ==
[2017-05-08] MEDS ORDERED: Ketorolac Tromethamine 30 MG/ML VIAL ONE (20:13)
[2017-05-08] MEDS ORDERED: Acetaminophen/Codeine 30-300mg Tablet ONE (20:42)
== END 2017-05-08 20:50 | disposition home or self-care (01) ==
LOC: NAV ERS 19:36
DX: M54.32 Sciatica, left side (principal); D50.9 Iron deficiency anemia, unspecified; I10 Essential (primary) hypertension; E11.9 Type 2 diabetes mellitus without complications; Z79.4 Long term (current) use of insulin; Z79.899 Other long term (current) drug therapy
CPT/HCPCS: 96372; J1885

== ENCOUNTER 2018-02-08 07:27 | Outpatient (CLI) | payer MEDICARE, OTHER ==
--- NOTE | 2018-02-08 08:46 | RAD ---
THREE VIEWS RIGHT SHOULDER: CLINICAL HISTORY: Shoulder pain. FINDINGS: Osseous structures are demineralized. There is no fracture or dislocation. IMPRESSION: No acute osseous abnormality of the right shoulder. POS: [facility]
--- NOTE | 2018-02-08 10:55 | RAD ---
RADIOGRAPH LEFT SHOULDER THREE VIEWS: 02/08/2018 HISTORY: A 67-year-old female with bilateral shoulder pain. FINDINGS: Diffuse osteopenia. No fracture or dislocation. Mild to moderate DJD at the AC joint. Relatively n ormal appearance of glenohumeral joint. IMPRESSION: 1. Osteopenia. 2. Osteoarthrosis of the acromioclavicular joint. 3. No fracture. POS: [facility]
== END 2018-02-08 07:28 | disposition home or self-care (01) ==
LOC: NAV RAD 07:27
PROVIDERS: ATTEND Family Medicine
DX: M25.511 Pain in right shoulder (principal); M25.512 Pain in left shoulder; G89.29 Other chronic pain; M19.012 Primary osteoarthritis, left shoulder; M85.80 Other specified disorders of bone density and structure, unspecified site

== ENCOUNTER 2019-11-27 17:52 | Emergency (ER) | payer MEDICARE, OTHER ==
[2019-11-27] MEDS ORDERED: Ketorolac Tromethamine 30 MG/ML VIAL ONE (18:21)
[2019-11-27] MEDS ORDERED: Sodium Chloride 0.9% 1,000 ML ONE (18:21)
[2019-11-27] MEDS ORDERED: Carvedilol 3.125 MG TAB ONE (18:47)
[2019-11-27] MEDS ORDERED: Insulin Regular 300 UNITS/3 ML VIAL ONE (18:52)
[2019-11-27 19:03] LABS: #Basophils 0.1 thou/uL (0.0-0.2); #Eosinphils 0.4 thou/uL (0.0-0.7); #Lymphocytes 2.3 thou/uL (1.20-3.40); #Monocytes 0.6 thou/uL (0.11-0.59); #Neutrophils 5.3 thou/uL (1.40-6.50); %Basophils 0.8 % (0.0-1.0); %Eosinophils 4.4 % (0.0-10.0); %Lymphocytes 26.8 % (21.0-51.0); %Monocytes 6.9 % (0.0-10.0); %Neutrophils 61.1 % (42.0-75.0); Hemoglobin 9.4 g/dL (12.0-16.0); Mean Corpuscular HGB CONC 33.3 g/dL (32.0-36.0); Mean Corpuscular Hemoglobin 28.9 pg (27.0-31.0); Mean Corpuscular Volume 86.8 fL (78.0-98.0); Mean Platelet Volume 10.3 fL (7.4-10.4); Platelet Count 191 thou/uL (130-400); RBC Distribution Width 11.3 % (11.5-14.5); Red Blood Cell (RBC) Count 3.25 mill/uL (4.20-5.40); White Blood Cell (WBC) Count 8.6 thou/uL (4.8-10.8)
[2019-11-27 19:15] LABS: ALT (SGPT) 21 U/L (8-55); AST (SGOT) 22 U/L (5-34); Alkaline Phosphatase 139 U/L (40-110); Anion Gap 16 mmol/L (10-20); BUN (Urea Nitrogen) 29 mg/dL (9.8-20.1); Bilirubin, Total 0.6 mg/dL (0.2-1.2); Calc. Creatinine Clearance 0 mL/min (70-130); Calcium 9.9 mg/dL (7.8-10.44); Carbon Dioxide 18 mmol/L (23-31); Chloride 107 mmol/L (98-107); Estimated GFR-MDRD 34; Globulin 4.4 g/dL (2.4-3.5); Glucose 423 mg/dL (80-115); Potassium 3.7 mmol/L (3.5-5.1); Protein, Total 8.4 g/dL (6.0-8.3); Sodium 137 mmol/L (136-145)
--- NOTE | 2019-11-27 19:51 | RAD ---
AP PELVIS AND LEFT HIP TWO VIEWS: 11/27/19 HISTORY: Left hip and groin pain radiating down the left lower extremity. FINDINGS/IMPRESSION: No fracture, dislocation, or bony destruction is seen. There are vascular calcifications. There are m ild degenerative changes bilaterally. No acute fracture, dislocation or bony destruction seen. The calcifications in the upper abdomen are in a pattern suspicious for chronic pancreatitis. POS: OFF
--- NOTE | 2019-11-27 19:52 | RAD ---
AP PELVIS AND LEFT HIP TWO VIEWS: 11/27/19 HISTORY: Left hip and groin pain radiating down the left lower extremity. FINDINGS/IMPRESSION: No fracture, dislocation, or bony destruction is seen. There are vascular calcifications. There are m ild degenerative changes bilaterally. No acute fracture, dislocation or bony destruction seen. The calcifications in the upper abdomen are in a pattern suspicious for chronic pancreatitis POS: OFF
--- NOTE | 2019-11-27 19:56 | CT ---
CT LUMBAR SPINE WITHOUT CONTRAST: 11/27/19 HISTORY: Left hip and groin pain radiating down the leg. FINDINGS: The vertebral body heights are maintained. There is grade I anterolisthesis of L4 over L5. Multilevel facet hypertrophic changes are present bilaterally. There is a broad based disc bulge at L4-5 level causing central canal stenosis and bilateral neural foraminal stenosis. There is also a broad based d isc bulge at L5-S1 level causing bilateral neural foraminal stenosis. No compression fracture is seen . There are calcifications in the pancreas consistent with chronic pancreatitis. IMPRESSION: Lumbar spondylosis with grade I anterolisthesis of L4 over L5 with central canal stenosis at L4-5 and bilateral neural foraminal stenosis at L4-5 and L5-S1 levels. POS: OFF
[2019-11-27 20:03] LABS: Bilirubin Negative (Negative); Blood, Urine Trace (Negative); Clarity Clear (Clear); Glucose, Urine (Dipstick) 500 mg/dL (Negative); Leukocyte Negative (Negative); Nitrite Negative (Negative); Protein, Urine (Dipstick) 30 mg/dL (Neg-Trace); Urobilinogen 0.2 mg/dL (Less than 2)
[2019-11-27 20:13] LABS: RBC/HPF 0-3 HPF (0-3); WBC/HPF 0-3 HPF (0-3)
== END 2019-11-27 20:07 | disposition home or self-care (01) ==
LOC: NAV ERS 17:52
DX: M16.12 Unilateral primary osteoarthritis, left hip (principal); M51.36 Other intervertebral disc degeneration, lumbar region; I10 Essential (primary) hypertension; E11.65 Type 2 diabetes mellitus with hyperglycemia; E11.9 Type 2 diabetes mellitus without complications; D50.9 Iron deficiency anemia, unspecified; Z79.4 Long term (current) use of insulin; Z79.899 Other long term (current) drug therapy; Z79.891 Long term (current) use of opiate analgesic
CPT/HCPCS: 36416; 72131; 72170; 80053; 81003; 81015; 85025; 96361; 96374; J1815; J1885; J7050

== ENCOUNTER 2020-05-04 14:42 | Emergency (ER) | payer MEDICARE, OTHER ==
[2020-05-04] MEDS ORDERED: Sodium Chloride 0.9% 1,000 ML ONE ×2 (15:02→16:57)
[2020-05-04] MEDS ORDERED: Acetaminophen 500 MG TAB ONE (15:02)
[2020-05-04 15:24] LABS: Hemoglobin 8.5 g/dL (12.0-16.0); Mean Corpuscular HGB CONC 30.5 g/dL (32.0-36.0); Mean Corpuscular Hemoglobin 27.9 pg (27.0-31.0); Mean Corpuscular Volume 91.4 fL (78.0-98.0); Mean Platelet Volume 9.9 fL (7.4-10.4); Platelet Count 142 thou/uL (130-400); RBC Distribution Width 11.3 % (11.5-14.5); Red Blood Cell (RBC) Count 3.03 mill/uL (4.20-5.40); White Blood Cell (WBC) Count 6.2 thou/uL (4.8-10.8)
--- NOTE | 2020-05-04 15:32 | RAD ---
PORTABLE CHEST 1 VIEW: Date: 05/04/2020 Time: 1529 hours HISTORY: Cough. COMPARISON: 10/10/2016. FINDINGS: The heart size is normal. The lungs are expanded without focal areas of consolidation, pneumothoraces , or pleural effusions. IMPRESSION: No radiographic evidence of acute cardiopulmonary process. POS: OFF
[2020-05-04 15:47] LABS: ALT (SGPT) 23 U/L (8-55); AST (SGOT) 28 U/L (5-34); Alkaline Phosphatase 99 U/L (40-110); Anion Gap 15 mmol/L (10-20); BUN (Urea Nitrogen) 24 mg/dL (9.8-20.1); Bilirubin, Total 0.6 mg/dL (0.2-1.2); Calc. Creatinine Clearance 0 mL/min (70-130); Calcium 9.1 mg/dL (7.8-10.44); Carbon Dioxide 14 mmol/L (23-31); Chloride 111 mmol/L (98-107); Estimated GFR-MDRD 36; Globulin 4.1 g/dL (2.4-3.5); Glucose 217 mg/dL (80-115); Potassium 3.8 mmol/L (3.5-5.1); Protein, Total 8.1 g/dL (6.0-8.3); Sodium 136 mmol/L (136-145)
[2020-05-04 16:27] LABS: Band 2 % (5-11); Hypochromia SLIGHT = 6-15 cells (100X) (0-5/hpf); Lymphocytes 22 % (21-51); MDiff Complete? YES; Monocytes 8 % (0-10); Neutrophil 68 % (42-75); Platelet Morphology Comment Appears Adequate
[2020-05-04 19:09] LABS: Anion Gap 15 mmol/L (10-20); BUN (Urea Nitrogen) 21 mg/dL (9.8-20.1); Calc. Creatinine Clearance 0 mL/min (70-130); Calcium 8.5 mg/dL (7.8-10.44); Carbon Dioxide 14 mmol/L (23-31); Chloride 114 mmol/L (98-107); Estimated GFR-MDRD 42; Glucose 170 mg/dL (80-115); Potassium 3.5 mmol/L (3.5-5.1); Sodium 139 mmol/L (136-145)
== END 2020-05-04 20:33 | disposition short-term general hospital (02) ==
LOC: NAV ERS 14:42
DX: Z20.828 Contact with and (suspected) exposure to other viral communicable diseases (principal); D64.9 Anemia, unspecified; E87.2 Acidosis; E11.9 Type 2 diabetes mellitus without complications; Z79.4 Long term (current) use of insulin; D50.9 Iron deficiency anemia, unspecified; I10 Essential (primary) hypertension; Z79.899 Other long term (current) drug therapy
CPT/HCPCS: 71045; 80053; 83605; 83880; 84484; 85025; 87040; 93005; 94760; 96360; 96361; J7050

== ENCOUNTER 2021-06-24 13:17 | Emergency (ER) | payer MEDICARE, OTHER ==
[2021-06-25 17:08] LABS: SARS-CoV-2 PCR by NAA Not Detected (NotDetected)
== END 2021-06-24 14:11 | disposition home or self-care (01) ==
LOC: NAV ERS 13:17
DX: Z20.822 Contact with and (suspected) exposure to COVID-19 (principal); E11.9 Type 2 diabetes mellitus without complications; I10 Essential (primary) hypertension; Z87.891 Personal history of nicotine dependence; Z79.4 Long term (current) use of insulin; Z79.899 Other long term (current) drug therapy
CPT/HCPCS: 99283; U0003; U0005

== ENCOUNTER 2021-12-23 09:58 | Emergency (ER) | payer MEDICARE, OTHER ==
[2021-12-23 10:30] LABS: #Basophils 0.1 thou/uL (0.0-0.2); #Eosinphils 0.7 thou/uL (0.0-0.7); #Lymphocytes 2.7 thou/uL (1.20-3.40); #Monocytes 0.6 thou/uL (0.11-0.59); #Neutrophils 5.4 thou/uL (1.40-6.50); %Basophils 1.4 % (0.0-1.0); %Lymphocytes 28.2 % (21.0-51.0); %Monocytes 6.5 % (0.0-10.0); %Neutrophils 56.9 % (42.0-75.0); Hemoglobin 9.7 g/dL (12.0-16.0); Mean Corpuscular HGB CONC 31.6 g/dL (32.0-36.0); Mean Corpuscular Hemoglobin 28.4 pg (27.0-31.0); Mean Corpuscular Volume 89.6 fL (78.0-98.0); Mean Platelet Volume 7.3 fL (7.4-10.4); Platelet Count 238 thou/uL (130-400); White Blood Cell (WBC) Count 9.5 thou/uL (4.8-10.8)
[2021-12-23 10:39] LABS: ALT (SGPT) 16 U/L (8-55); AST (SGOT) 27 U/L (5-34); Albumin 4.4 g/dL (3.4-4.8); Alkaline Phosphatase 117 U/L (40-110); Anion Gap 15 mmol/L (10-20); BUN (Urea Nitrogen) 23 mg/dL (9.8-20.1); Bilirubin, Total 0.9 mg/dL (0.2-1.2); Calc. Creatinine Clearance 0 mL/min (70-130); Calcium 9.5 mg/dL (7.8-10.44); Carbon Dioxide 15 mmol/L (23-31); Chloride 114 mmol/L (98-107); Globulin 4.5 g/dL (2.4-3.5); Glucose 178 mg/dL (83-110); Potassium 3.8 mmol/L (3.5-5.1); Protein, Total 8.9 g/dL (5.8-8.1); Sodium 140 mmol/L (136-145)
== END 2021-12-23 11:25 | disposition home or self-care (01) ==
LOC: NAV ERS 09:58
DX: R60.0 Localized edema (principal); E11.9 Type 2 diabetes mellitus without complications; I10 Essential (primary) hypertension; Z79.4 Long term (current) use of insulin; Z79.82 Long term (current) use of aspirin; Z79.899 Other long term (current) drug therapy; Z87.891 Personal history of nicotine dependence
CPT/HCPCS: 80053; 83880; 84484; 85025; 93005

== ENCOUNTER 2022-02-05 21:36 | Emergency (ER) | payer MEDICARE, OTHER | END 2022-02-05 22:10 | disposition home or self-care (01) | LOC: NAV ERS 21:36 | DX: J04.0 Acute laryngitis (principal); E11.9 Type 2 diabetes mellitus without complications; I10 Essential (primary) hypertension; Z87.891 Personal history of nicotine dependence; Z79.4 Long term (current) use of insulin; Z79.82 Long term (current) use of aspirin; Z79.899 Other long term (current) drug therapy | CPT/HCPCS: 99283 ==

== ENCOUNTER 2022-07-19 16:30 | Emergency (ER) | payer OTHER | END 2022-07-19 17:48 | disposition home or self-care (01) | LOC: NAV ERS 16:30 | DX: S16.1XXA Strain of muscle, fascia and tendon at neck level, initial encounter (principal); E11.9 Type 2 diabetes mellitus without complications; I10 Essential (primary) hypertension; Z87.891 Personal history of nicotine dependence; Z79.4 Long term (current) use of insulin; Z79.899 Other long term (current) drug therapy; X58.XXXA Exposure to other specified factors, initial encounter | CPT/HCPCS: 99283 ==

== ENCOUNTER 2022-10-26 08:33 | Outpatient (CLI) | payer OTHER | END 2022-10-26 08:34 | disposition home or self-care (01) | LOC: NAV RAD 08:33 | PROVIDERS: ATTEND Family Medicine | DX: M25.512 Pain in left shoulder (principal); M19.012 Primary osteoarthritis, left shoulder ==

== ENCOUNTER 2023-06-01 09:25 | Emergency (ER) | payer OTHER | END 2023-06-01 10:20 | disposition home or self-care (01) | LOC: NAV ERS 09:25 | DX: M54.2 Cervicalgia (principal); R00.0 Tachycardia, unspecified; I10 Essential (primary) hypertension; E11.9 Type 2 diabetes mellitus without complications; D50.9 Iron deficiency anemia, unspecified; Z79.4 Long term (current) use of insulin; Z87.891 Personal history of nicotine dependence; Z79.899 Other long term (current) drug therapy | CPT/HCPCS: 93005 ==

== ENCOUNTER 2023-06-23 08:23 | Emergency (ER) | payer OTHER, MEDICARE ==
[2023-06-23] MEDS ORDERED: Acetaminophen 500 MG TAB ONE (09:12)
== END 2023-06-23 10:24 | disposition home or self-care (01) ==
LOC: NAV ERS 08:23
DX: S16.1XXA Strain of muscle, fascia and tendon at neck level, initial encounter (principal); M25.511 Pain in right shoulder; M25.512 Pain in left shoulder; Z87.891 Personal history of nicotine dependence; E11.9 Type 2 diabetes mellitus without complications; K21.9 Gastro-esophageal reflux disease without esophagitis; I10 Essential (primary) hypertension; Z79.4 Long term (current) use of insulin; Z79.899 Other long term (current) drug therapy; V43.62XA Car passenger injured in collision with other type car in traffic accident, initial encounter
CPT/HCPCS: 72125; 72128

== ENCOUNTER 2023-07-28 00:32 | Emergency (ER) | payer OTHER | END 2023-07-28 01:05 | disposition home or self-care (01) | LOC: NAV ERS 00:32 | DX: E11.65 Type 2 diabetes mellitus with hyperglycemia (principal); F41.9 Anxiety disorder, unspecified; K21.9 Gastro-esophageal reflux disease without esophagitis; D50.9 Iron deficiency anemia, unspecified; I10 Essential (primary) hypertension; E78.5 Hyperlipidemia, unspecified; Z87.891 Personal history of nicotine dependence; Z79.4 Long term (current) use of insulin; Z79.899 Other long term (current) drug therapy | CPT/HCPCS: 36416; 99284 ==

== ENCOUNTER 2023-09-26 18:21 | Emergency (ER) | payer OTHER ==
[2023-09-26] MEDS ORDERED: Acetaminophen 500 MG TAB ONE (19:41)
== END 2023-09-26 20:10 | disposition home or self-care (01) ==
LOC: NAV ERS 18:21
DX: S53.401A Unspecified sprain of right elbow, initial encounter (principal); K21.9 Gastro-esophageal reflux disease without esophagitis; E78.5 Hyperlipidemia, unspecified; I10 Essential (primary) hypertension; Z87.891 Personal history of nicotine dependence; Z79.4 Long term (current) use of insulin; Z79.899 Other long term (current) drug therapy; X50.1XXA Overexertion from prolonged static or awkward postures, initial encounter

== ENCOUNTER 2024-01-06 08:01 | Emergency (ER) | payer OTHER ==
[2024-01-06] MEDS ORDERED: Acetaminophen 500 MG TAB ONE (08:28)
== END 2024-01-06 09:20 | disposition home or self-care (01) ==
LOC: NAV ERS 08:01
DX: S00.93XA Contusion of unspecified part of head, initial encounter (principal); R04.0 Epistaxis; I10 Essential (primary) hypertension; Z87.891 Personal history of nicotine dependence; W18.30XA Fall on same level, unspecified, initial encounter; Z79.899 Other long term (current) drug therapy
CPT/HCPCS: 70450

== ENCOUNTER 2024-03-05 11:06 | Emergency (ER) | payer OTHER, MEDICAID ==
[2024-03-05] MEDS ORDERED: Aspirin Chewable 81 MG TAB ONE (11:51)
[2024-03-05] MEDS ORDERED: Nitroglycerin 2% Ointment 1 INCH/1 GM Packet ONE (11:51)
[2024-03-05 12:10] LABS: ALT (SGPT) 49 U/L (8-55); AST (SGOT) 45 U/L (5-34); Albumin 3.7 g/dL (3.4-4.8); Alkaline Phosphatase 135 U/L (40-110); Anion Gap 15 mmol/L (10-20); BUN (Urea Nitrogen) 25 mg/dL (9.8-20.1); Bilirubin, Total 0.9 mg/dL (0.2-1.2); Calc. Creatinine Clearance 0 mL/min (70-130); Calcium 9.4 mg/dL (7.8-10.44); Carbon Dioxide 17 mmol/L (23-31); Chloride 110 mmol/L (98-107); Estimated GFR 27; Globulin 4.6 g/dL (2.4-3.5); Glucose 261 mg/dL (83-110); Lipase 7 U/L (8-78); Potassium 2.9 mmol/L (3.5-5.1); Protein, Total 8.3 g/dL (5.8-8.1); Sodium 139 mmol/L (136-145); Troponin I 0.021 ng/mL (< 0.028)
[2024-03-05 12:14] LABS: #Basophils 0.1 thou/uL (0.0-0.2); #Eosinphils 0.4 thou/uL (0.0-0.7); #Lymphocytes 1.9 thou/uL (1.20-3.40); #Monocytes 0.7 thou/uL (0.11-0.59); #Neutrophils 6.6 thou/uL (1.40-6.50); %Basophils 0.9 % (0.0-1.0); %Eosinophils 4.6 % (0.0-10.0); %Lymphocytes 19.8 % (21.0-51.0); %Monocytes 6.9 % (0.0-10.0); %Neutrophils 67.8 % (42.0-75.0); Hemoglobin 10.8 g/dL (12.0-16.0); Mean Corpuscular HGB CONC 30.9 g/dL (32.0-36.0); Mean Corpuscular Hemoglobin 26.7 pg (27.0-31.0); Mean Corpuscular Volume 86.6 fl (78.0-98.0); Mean Platelet Volume 8.9 fL (7.4-10.4); Platelet Count 145 10x3/uL (130-400); RBC Distribution Width 13.4 % (11.5-14.5); Red Blood Cell (RBC) Count 4.05 mill/uL (4.20-5.40); White Blood Cell (WBC) Count 9.8 10x3/uL (4.8-10.8)
[2024-03-05] MEDS ORDERED: Potassium Chloride 20 MEQ TAB ONE (12:20)
[2024-03-05] MEDS ORDERED: Acetaminophen 500 MG TAB ONE (12:40)
== END 2024-03-05 12:47 | disposition home or self-care (01) ==
LOC: NAV ERS 11:06
DX: M54.6 Pain in thoracic spine (principal); D64.9 Anemia, unspecified; E86.0 Dehydration; R07.89 Other chest pain; K21.9 Gastro-esophageal reflux disease without esophagitis; I10 Essential (primary) hypertension; E78.5 Hyperlipidemia, unspecified; Z79.899 Other long term (current) drug therapy; Z79.4 Long term (current) use of insulin; Z87.891 Personal history of nicotine dependence
CPT/HCPCS: 71046; 80053; 83690; 84484; 85025; 93005

== ENCOUNTER 2025-06-09 20:30 | Emergency (ER) | payer OTHER ==
[2025-06-09 21:17] LABS: #Basophils 0.2 thou/uL (0.0-0.2); #Eosinophils 1.1 thou/uL (0.0-0.7); #Lymphocytes 3.3 thou/uL (1.20-3.40); #Monocytes 0.6 thou/uL (0.11-0.59); #Neutrophils 2.7 thou/uL (1.40-6.50); %Basophils 2.9 % (0.0-1.0); %Eosinophils 13.6 % (0.0-10.0); %Lymphocytes 41.7 % (21.0-51.0); %Monocytes 7.7 % (0.0-10.0); %Neutrophils 34.1 % (42.0-75.0); Hematocrit 28.8 % (36.0-47.0); Hemoglobin 9.0 g/dL (12.0-16.0); Mean Corpuscular Hemoglobin 25.9 pg (27.0-31.0); Mean Corpuscular Volume 82.9 fl (78.0-98.0); Platelet Count 175 10x3/uL (130-400); Red Blood Cell (RBC) Count 3.47 mill/uL (4.20-5.40); White Blood Cell (WBC) Count 8.0 10x3/uL (4.8-10.8)
[2025-06-09 21:27] LABS: ALT (SGPT) 32 U/L (Less than 34); AST (SGOT) 49 U/L (11-34); Albumin 3.8 g/dL (3.1-4.5); Alkaline Phosphatase 127 U/L (40-110); Anion Gap 18 mmol/L (10-20); BUN (Urea Nitrogen) 27 mg/dL (9.8-20.1); Bilirubin, Total 0.7 mg/dL (0.3-1.2); Calc. Creatinine Clearance 0 mL/min (70-130); Calcium 8.9 mg/dL (7.8-10.44); Carbon Dioxide 15 mmol/L (23-31); Chloride 110 mmol/L (98-107); Globulin 4.7 g/dL (2.4-3.5); Glucose 106 mg/dL (83-110); Potassium 3.4 mmol/L (3.5-5.1); Sodium 140 mmol/L (136-145)
[2025-06-09 21:58] LABS: Glucose, Urine (Dipstick) 250 mg/dL (Negative); Leukocyte Trace (Negative); Protein, Urine (Dipstick) Trace mg/dL (Neg-Trace); Specific Gravity, Urine Less/Equal 1.005 (1.005-1.030)
[2025-06-09 22:03] LABS: Bacteria/HPF Rare-Few HPF (None Seen); CAUTI Indications for Culture Dysuria,urgency,freq; RBC/HPF 0-3 HPF (0-3); Urine Culture Reflex No No
== END 2025-06-09 22:35 | disposition home or self-care (01) ==
LOC: NAV ERS 20:30
DX: E11.649 Type 2 diabetes mellitus with hypoglycemia without coma (principal); K21.9 Gastro-esophageal reflux disease without esophagitis; E78.5 Hyperlipidemia, unspecified; I12.9 Hypertensive chronic kidney disease with stage 1 through stage 4 chronic kidney disease, or unspecified chronic kidney disease; N18.30 Chronic kidney disease, stage 3 unspecified; Z79.4 Long term (current) use of insulin; Z79.899 Other long term (current) drug therapy; Z87.891 Personal history of nicotine dependence
CPT/HCPCS: 36416; 71045; 80053; 81001; 83605; 85025; 93005; 96360; J7030

== ENCOUNTER 2025-09-24 19:49 | Emergency (ER) | payer OTHER | END 2025-09-24 20:26 | disposition home or self-care (01) | LOC: NAV ERS 19:49 | DX: E11.65 Type 2 diabetes mellitus with hyperglycemia (principal); E78.5 Hyperlipidemia, unspecified; I12.9 Hypertensive chronic kidney disease with stage 1 through stage 4 chronic kidney disease, or unspecified chronic kidney disease; E11.22 Type 2 diabetes mellitus with diabetic chronic kidney disease; N18.30 Chronic kidney disease, stage 3 unspecified; K21.9 Gastro-esophageal reflux disease without esophagitis; Z87.891 Personal history of nicotine dependence; Z79.4 Long term (current) use of insulin; Z79.899 Other long term (current) drug therapy | CPT/HCPCS: 99284 ==